=== PATIENT | female | born 2000 | race Caucasian/White ===

== ENCOUNTER 2021-12-30 18:41 | Emergency (ER) | payer OTHER, SELFPAY ==
--- NOTE | ~2021-12-30 | CT_ITS ---
EXAMINATION: CT SOFT TISSUE NECK WITH CONTRAST CLINICAL INFORMATION: Left cheek abscess COMPARISON: None TECHNIQUE: Following the intravenous administration of 60 mL of Omnipaque 350 intravenous contrast, helical imaging was performed in the axial plane with generation of coronal and sagittal reformatted images. This CT examination was performed using dose optimization techniques as appropriate, variously including the following: *Automated exposure control *Adjustment of mA and/or kV according to patient size (this includes techniques or standardized protocols for targeted exams where dose is matched to indication/reason for exam; i.e. extremities or head) *Use of iterative reconstruction technique DLP: 404 mGy-cm FINDINGS: There is hazy increased attenuation of the left buccal fat pad appearing somewhat coalescent centrally, without discrete abscess formation. There is overlying skin thickening. No contour abnormality or pathologic enhancement is seen within the oral cavity or pharyngeal mucosal space. The parapharyngeal fat is preserved. No extra mucosal soft tissue mass or fluid collection is seen. No retropharyngeal fluid collection is seen No cervical adenopathy is identified. The parotid glands are homogeneous in attenuation. The submandibular glands are normal. The laryngeal structures are normal. The carotid sheath vasculature opacifies normally. The thyroid gland is normal. The superior mediastinum is unremarkable. The lung apices are clear. The mastoid air cells and visualized portions of the paranasal sinuses are well-aerated. The temporomandibular joints are normal. No periapical disease is identified. No osseous abnormalities are seen. The imaged portions of the brain parenchyma are unremarkable. CT/CT soft tissue neck w con IMPRESSION: * Edematous changes within the left buccal fat pad suggestive of cellulitis and possible central phlegmonous change, non-odontogenic. No discrete abscess is evident. * No evidence of deep space infection.
[2021-12-30 19:23] VITALS: BP 130/82; PULSE 126; RESP 18; TEMP 37.3; O2SAT 99
[2021-12-30 19:46] VITALS: BP 130/82; PULSE 126; RESP 18; TEMP 37.3; O2SAT 99; BMI 19.3
--- NOTE | 2021-12-30 22:23 | ED.SKABFB ---
HPI - Skin/Abscess/Foreign Bdy General Chief complaint: Skin/Abscess/Foreign Body Stated complaint: infection on L cheek Time Seen by Provider: 12/30/21 22:23 Source: patient Mode of arrival: ambulatory Limitations: no limitations History of Present Illness HPI narrative: 21-year-old female with history of MRSA presenting to the emergency department with complaints of swelling to the left side of her face. Patient tells me about a week ago she had a pimple on her left cheek, she popped her pimple, and cleaned it with a dirty tell, since then she noticed that the swelling and pain have increased the left side of the face. She now reports left-sided ear pain, throat pain and pain in the left side of her neck. Reports slight chills however unsure of fever. Denies difficulty swallowing, chest pain, shortness of breath, nausea, vomiting, abdominal pain. Related Data Previous Rx's Medication Instructions Recorded cephalexin 500 mg tablet 500 mg PO Q6H 10 days #40 tabs 12/30/21 doxycycline hyclate 100 mg capsule 100 mg PO BID 10 days #20 caps 12/30/21 fluconazole 150 mg tablet 150 mg PO Q3D 2 doses #2 tabs 12/31/21 (Diflucan) Allergies Allergy/AdvReac Type Severity Reaction Status Date / Time amoxicillin [AMOXICILLIN] Allergy Unknown N/V Verified 12/30/21 19:45 Penicillins [PENICILLINS] Allergy Unknown UNKNOWN Verified 12/30/21 19:45 Review of Systems Review of Systems: Constitutional : No Weight loss, No Fever, No Chills, No Fatigue, No Malaise ENT/Mouth : No sore throat, No Rhinorrhea Eyes: No Eye Pain, No Swelling, No Redness Cardiovascular : No Chest Pain, No SOB, No Dyspnea on Exertion, No Orthopnea, No Edema, No Palpitations Respiratory : No Cough, No Sputum, No Wheezing Gastrointestinal : No Nausea, No Vomiting, No Diarrhea, No Constipation, No abdominal Pain, No Hematochezia, No Melena Genitourinary : No Dysuria, No Urinary Frequency, No Hematuria, Musculoskeletal : No joint pain, No Myalgias, No Joint Swelling Skin : No Skin Lesions, + rash, + abscess Neuro : No Weakness, No Numbness, No Dizziness, No Headache All other systems reviewed and are negative Yes all other systems are reviewed and are negative [facility] Past Medical History Attestation statement: The following information was validated with the patient. Source: old records reviewed and nursing notes reviewed Social History Social History Advance Directives: No Advance Directives Information Provided: No Physical Exam Vital Signs: Vital Signs: Last Vital Signs Temp 99.1 F 12/30/21 19:46 Pulse 126 H 12/30/21 19:46 Resp 18 12/30/21 19:46 BP 130/82 12/30/21 19:46 Pulse Ox 99 12/30/21 19:46 O2 Del Method 12/30/21 19:46 BMI result Body Mass Index 19.3 Vital signs stable however patient noted to be tachycardic and has a low-grade fever. Appearance: Alert.? Oriented X3.? No acute distress.? Head: Normocephalic, atraumatic, no step-offs or deformities Eyes: Pupils equal, round and reactive to light.? ENT: Pharynx normal.? Uvula midline. Patent airway. Neck: Normal inspection.? Neck supple.? No crepitus. CVS: Normal heart rate and rhythm.? Pulses normal.? Respiratory: No respiratory distress.? Breath sounds normal.? No stridor. Abdomen: Soft and nontender.? Skin: Skin warm and dry.? Normal skin color.? Normal skin turgor.? + positive warmth overlying the left cheek with overlying soft tissue swelling. No palpable fluctuance. Extremities: No lower extremity edema.? No calf ttp. 5/5 strength to bilateral upper and lower extremities Neuro: Oriented X 3.? No motor deficit.? No sensory deficit. CN 2-12 intact Course Reevaluation(s) Reevaluation #1: Patient's CBC within normal limits, no leukocytosis. Chemistry with no acute findings. COVID negative. CT of soft tissue neck with con with a did edematous changes within the left pupil fat pad suggestive of cellulitis and possible central phlegmonous change, non-odontogenic. No discreete abscess is evident. Patient willl be d/c on doxy and kelfex. Advised to follow-up PCP as soon as possible and shows worsening symptoms Time: : MDM - Skin/Abscess/Foreign Bdy MDM Narrative Medical decision making narrative: 2029 21-year-old female presenting with left-sided cheek swelling, pain status post popping a pimple, progressively worsening infection. Physical examination significant for significantly swollen left cheek with overlying erythema and warmth. No fluctuance. Likely abscess, or cellulitis. Will obtain a CT of neck, soft tissues to rule out abscess. Medical Records Attestation: I reviewed the patient's medical records. Lab Data Attestation: I reviewed the patient's lab results. Result diagrams: 12/30/21 23:21 12/30/21 23:21 Labs: Lab Results 12/30/21 12/30/21 12/30/21 Range/Units 23:20 23:21 23:21 WBC 10.1 (4.8-10.8) X10*3/uL RBC 4.09 L (4.20-5.50) X10*6/uL Hgb 12.5 (12.0-16.0) g/dl Hct 37.9 (37.0-47.0) % MCV 92.7 (80.0-98.0) fL MCH 30.6 (27.0-33.0) pg MCHC 33.0 (31.0-35.0) g/dl RDW 12.3 (11.0-16.0) % Plt Count 202 (160-400) X10*3/uL MPV 10.6 (9.4-12.3) fL Immature Gran % (Auto) 0.3 (0.0-0.4) % Neut % (Auto) 65.9 (45-73) % Lymph % (Auto) 25.6 (20-40) % Galax % (Auto) 6.6 (2-11) % Eos % (Auto) 1.2 (0-4) % Baso % (Auto) 0.4 (0-2) % Lymph # (Auto) 2.6 (1.2-4.9) X10*3/uL Galax # (Auto) 0.7 (0.1-1.2) X10*3/uL Eos # (Auto) 0.1 (0.0-0.4) X10*3/uL Baso # (Auto) 0.0 (0.0-0.2) X10*3/uL Abs Immat Gran (auto) 0.03 (0.00-0.03) X10*3/uL Absolute Neuts (auto) 6.7 (2.0-8.3) x10*3/uL Absolute Nucleated RBC 0.000 (0.0-0.012) X10*3/uL Nucleated RBC % (auto) 0.0 (0.0-0.2) /100WBC Sodium 142 (135-145) mmol/L Potassium 3.7 (3.3-5.1) mmol/L Chloride 105 (96-108) mmol/L Carbon Dioxide 26 (22-29) mmol/L Anion Gap 15 (12-20) BUN 11 (9-16) mg/dL Creatinine 0.61 (0.5-1.4) mg/dL Estim Creat Clear Calc 108.0 Estimated GFR > 60 Random Glucose 99 (60-115) mg/dL Lactic Acid (0.5-2.0) mmol/L Calcium 9.1 (8.4-10.2) mg/dL Total Bilirubin 0.3 (0.0-1.0) mg/dL AST 36 H (5-31) U/L ALT 28 (0-31) U/L Alkaline Phosphatase 71 (39-117) U/L Total Protein 7.1 (6.5-8.0) g/dL Albumin 4.4 (3.5-5.0) g/dL COVID-19 (YELITZA) Negative (Negative) COVID-19 Clin Com See Note 12/30/21 Range/Units 23:21 WBC (4.8-10.8) X10*3/uL RBC (4.20-5.50) X10*6/uL Hgb (12.0-16.0) g/dl Hct (37.0-47.0) % MCV (80.0-98.0) fL MCH (27.0-33.0) pg MCHC (31.0-35.0) g/dl RDW (11.0-16.0) % Plt Count (160-400) X10*3/uL MPV (9.4-12.3) fL Immature Gran % (Auto) (0.0-0.4) % Neut % (Auto) (45-73) % Lymph % (Auto) (20-40) % Galax % (Auto) (2-11) % Eos % (Auto) (0-4) % Baso % (Auto) (0-2) % Lymph # (Auto) (1.2-4.9) X10*3/uL Galax # (Auto) (0.1-1.2) X10*3/uL Eos # (Auto) (0.0-0.4) X10*3/uL Baso # (Auto) (0.0-0.2) X10*3/uL Abs Immat Gran (auto) (0.00-0.03) X10*3/uL Absolute Neuts (auto) (2.0-8.3) x10*3/uL Absolute Nucleated RBC (0.0-0.012) X10*3/uL Nucleated RBC % (auto) (0.0-0.2) /100WBC Sodium (135-145) mmol/L Potassium (3.3-5.1) mmol/L Chloride (96-108) mmol/L Carbon Dioxide (22-29) mmol/L Anion Gap (12-20) BUN (9-16) mg/dL Creatinine (0.5-1.4) mg/dL Estim Creat Clear Calc Estimated GFR Random Glucose (60-115) mg/dL Lactic Acid 1.6 (0.5-2.0) mmol/L Calcium (8.4-10.2) mg/dL Total Bilirubin (0.0-1.0) mg/dL AST (5-31) U/L ALT (0-31) U/L Alkaline Phosphatase (39-117) U/L Total Protein (6.5-8.0) g/dL Albumin (3.5-5.0) g/dL COVID-19 (YELITZA) (Negative) COVID-19 Clin Com Critical Care Time Critical Care Time Critical Care Time: No Discharge Plan Discharge Clinical Impression: Cellulitis, Swelling, cheek Patient Disposition: Home, Self-Care Instructions: Cellulitis (ED), Abscess (ED), Warm Compress or Soak (ED) Additional Instructions: Take your medications as prescribed. If you were prescribed antibiotics today, it is important that you take your medication to their entirety, do not skip any doses, do not finish them early. Follow-up with your primary care provider this week. Return to the emergency department with new or worsening symptoms. Such as fevers, chills, chest pain, shortness of breath, nausea, vomiting, dizziness, headache, vision changes, lethargy In case of emergency call 911 CT/CT soft tissue neck w con IMPRESSION: *? Edematous changes within the left buccal fat pad suggestive of cellulitis and possible central phlegmonous change, non-odontogenic. No discrete abscess is evident. *? No evidence of deep space infection. ? Prescriptions: New doxycycline hyclate 100 mg capsule 100 mg PO BID 10 Days Qty: 20 0RF cephalexin 500 mg tablet 500 mg PO Q6H 10 Days Qty: 40 0RF fluconazole [Diflucan] 150 mg tablet 150 mg PO Q3D Qty: 2 0RF Referrals: Rex Alejandre MD [Primary Care Provider] - 2 days
[2021-12-30 23:27] LABS: MANUAL DIFF FLAG NO
--- NOTE | 2021-12-30 23:27 | PC.NURSE ---
Pt refusing IV and IV ABX. Pt states I just thought I would get some pills, I don't want that. ARACELI notified that pt is refusing causing delay to administer ABX. ARACELI to bedside to discuss plan of care with pt.
[2021-12-30 23:29] LABS: Basophils Percent Auto 0.4 % (0-2); Eosinophils Absolute Auto 0.1 X10*3/uL (0.0-0.4); Eosinophils Percent Auto 1.2 % (0-4); Hematocrit 37.9 % (37.0-47.0); Hemoglobin 12.5 g/dl (12.0-16.0); Imm Gran Abs Auto 0.03 X10*3/uL (0.00-0.03); Imm Gran Pct Auto 0.3 % (0.0-0.4); Lymphocytes Absolute Auto 2.6 X10*3/uL (1.2-4.9); Lymphocytes Percent Auto 25.6 % (20-40); Mean Corpuscular Hemoglobin 30.6 pg (27.0-33.0); Mean Corpuscular Volume 92.7 fL (80.0-98.0); Mean Platelet Volume 10.6 fL (9.4-12.3); Monocytes Absolute Auto 0.7 X10*3/uL (0.1-1.2); Monocytes Percent Auto 6.6 % (2-11); Neutrophils Absolute Auto 6.7 x10*3/uL (2.0-8.3); Neutrophils Percent Auto 65.9 % (45-73); Platelet Count 202 X10*3/uL (160-400); Red Blood Count 4.09 X10*6/uL (4.20-5.50); Red Cell Distribution Width 12.3 % (11.0-16.0); White Blood Count 10.1 X10*3/uL (4.8-10.8)
[2021-12-30 23:42] LABS: Lactic Acid 1.6 mmol/L (0.5-2.0)
[2021-12-30] MEDS: Clindamycin Phosphate/D5W 600 MG/50 ML PIGGYBACK 100 MG IV (23:42)
--- NOTE | 2021-12-30 23:43 | PC.NURSE ---
IV established, ABX infusing per MAR. Plan for CT.
[2021-12-30 23:46] LABS: COVID-19 Test Negative (Negative)
[2021-12-30 23:47] LABS: Alanine Aminotransferase 28 U/L (0-31); Albumin Level 4.4 g/dL (3.5-5.0); Alkaline Phosphatase 71 U/L (39-117); Anion Gap 15 (12-20); Aspartate Amino Transferase 36 U/L (5-31); Bilirubin Total 0.3 mg/dL (0.0-1.0); Blood Urea Nitrogen 11 mg/dL (9-16); Calcium 9.1 mg/dL (8.4-10.2); Carbon Dioxide 26 mmol/L (22-29); Chloride 105 mmol/L (96-108); Estimated Glomerular Filt Rate > 60; Glucose Random 99 mg/dL (60-115); Potassium 3.7 mmol/L (3.3-5.1); Sodium 142 mmol/L (135-145); Total Protein 7.1 g/dL (6.5-8.0)
[2021-12-31] MEDS: iohexoL 350 MG/ML 100 ML INFUS..BTL 60 ML IV (00:59)
== END 2021-12-31 01:43 | disposition home or self-care (01) ==
PROVIDERS: Physician Assistant; Emergency Provider Internal Medicine; PCP Internal Medicine
DX: L03.211 Cellulitis of face (principal); R22.0 Localized swelling, mass and lump, head; Z20.822 Contact with and (suspected) exposure to COVID-19
CPT/HCPCS: 70491; 80053; 83605; 85025; 87040; 87635; 96365; 99283; 99284; Q9967

== ENCOUNTER 2022-04-11 06:23 | Emergency (ER) | payer OTHER, SELFPAY ==
[2022-04-11 06:35] VITALS: BP 117/75; PULSE 105; RESP 22; TEMP 36.8; O2SAT 94; BMI 20.5
--- OUTSIDE RECORDS SUMMARY | 2022-04-11 07:43 | XMS_ITS ---
:2001 External Reference #:[id number] Author Care Team Providers Name Role Phone REX ALEJANDRE MD Primary Care Provider [phone] LISHA HANDLEY MD Referring Provider [phone] RUTHIE HELTON MD Referring Provider [phone] AMANDA POOL MD Psychiatrist [phone] KUMAR MOODY MD Referring Provider [phone] HALINA BAEZA MD Referring Provider [phone] [facility] (ADULT INTAKE) Clinical Psycholo gist [phone] Allergies Code Code System Name Reaction Severity Status Onset No Known Allergies ? ? Deactivated 05/17/2011 Penicillins Rash ? Active 11/28/19 14 Adhesive Tape Rash ? Active ? Medications Name Status Start Date Stop Date ? ? a thru z select advanced tabs Completed ? Aerochamber Max - Mask Small Completed 03/31/2010 DIRECTED albuterol (refill) 90 mcg/actuation aerosol inhaler Completed 03/31/2010 04/29/2012 Q 4-6 HRS PRN COUGH/WHEEZE amoxicillin 400 mg chewable tablet Completed 09/09/2008 09/14/2008 TWO TIMES DAILY amoxicillin 400 mg/5 mL oral suspension Completed 09/03/19 09 09/12/2008 EVERY 8 HOURS azithromycin 200 mg/5 mL oral suspension Completed 010 04/05/2010 DIRECTED azithromycin 250 mg tablet Completed ? 03/06 azithromycin 500 mg tabs Unknown ? Not suhail ilable benzonatate 100 mg caps Unknown ? Not avai lable cefuroxime axetil 500 mg tablet Completed ? 03/29/2021 TK 1 T PO BID FOR 7 DAYS cetirizine 10 mg tablet Completed 09/21/2011 11/27/19 13 DAILY DAILY VITAMIN FORMULA-MINERALS tablet Completed ? 03/11/2016 Take 1 tablet every day by oral route. dextroamphetamine-amphetamine ER 15 mg 24hr Unknown ? Not available capsule,extend release fluconazole 150 mg tablet Completed ? 2020 TAKE 1 TABLET BY MOUTH ON THE FIRST DAY , THEN 1 TABLET EVERY 3RD DAY FOR 9 DAYS fluticasone propionate 50 mcg/actuation nasal spray,suspension A ctive ? Not available Inhale 2 sprays every day by intranasal route each nostril for 30 days. gabapentin 100 mg capsule Active ? Not av ailable TAKE 1 CAPSULE BY MOUTH TWICE A DAY lidocaine viscous 2 % soln Unknown ? Not a vailable loperamide hcl 2 mg caps Unknown ? Not suhail ilable loratadine 10 mg tablet Completed ? 12/09/19 16 melatonin 1.5 mg tablet Completed ? 10/22/19 10 HS methylphenidate ER 20 mg tablet,extended release Completed ? 05/17/2011 DAILY miconazole nitrate 100 mg vaginal suppository Completed ? 03/29/2021 INSERT 1 UNWRAPPED SUPPOSITORY VAGINALLY ONCE A DAY AT BEDTIME FOR 14 DAYS montelukast 5 mg chewable tablet Completed ? 12/19/2018 mupirocin calcium 2 % topical cream Completed ? 09/21/2016 Nasarel 29 mcg (0.025 %) nasal spray Completed 08/26/2008 10/21/2009 2 TIMES A DAY Nasonex 50 mcg/actuation [place] Unknown 08/26/2008 N ot available DAILY bhtnexwk-ckuaotgre-sahettiae 3.5 mg/mL-10,000 unit/mL- 1 % ear solution Completed 05/17/2011 05/24/2011 FOUR TIMES DAILY Nexplanon 68 mg subdermal implant Completed ? 02/26/2020 Inject 1 implant by subcutaneous route. nystatin-triamcinolone 100,000 unit/g-0.1 % Unknown ? Not available topical cream omeprazole Completed 09/21/2011 10/21/2011 DAILY omeprazole 40 mg capsule,delayed release Completed ? 09/21/2016 ondansetron odt 4 mg tbdp Unknown ? Not av ailable polymyxin B sulfate 10,000 unit-trimethoprim 1 mg/mL eye priscila ps Completed 05/18/2010 05/25/2010 FOUR TIMES DAILY prednisolone 15 mg/5 mL oral solution Completed 01/11/2009 01/16/2009 DIRECTED prednisone 20 mg tablet Completed 01/12/2009 01/18/20 09 DAILY quetiapine fumarate 50 mg tabs Unknown ? N ot available risperidone 0.5 mg tablet Unknown ? Not av ailable risperidone 1 mg tabs Unknown ? Not availa ble sertraline 100 mg tablet Completed ? 018 sertraline 50 mg tablet Completed ? 09/22/19 17 sertraline hcl 50 mg tabs Unknown ? Not av ailable sulfamethoxazole 800 mg-trimethoprim 160 mg Completed ? 02/26/2020 tablet sumatriptan 25 mg tablet Completed ? 016 terconazole 0.4 % vaginal cream Completed ? 03/29/2021 INSERT 1 APPLICATION VAGINALLY AT BEDTIME X 7 DAYS ziprasidone hcl 20 mg caps Unknown ? Not a vailable Zithromax TRI-ISABELL 500 mg tablet Unknown ? Not available Take 1 tablet every day by oral route as directed for 3 days. Problems Name Status Onset Date Source ? Varicella Vaccination Unknown 10/21/2009 ? Varicella Vaccination Unknown 10/21/2009 ? Functional Visual Loss Unknown 02/21/2012 ? Functional Visual Loss Unknown 02/21/2012 ? Conjunctivitis Unknown 02/21/2012 ? Conjunctivitis Unknown 02/21/2012 ? Infective Otitis Externa Unknown 02/21/2012 ? Infective Otitis Externa Unknown 02/21/2012 ? Acute Sinusitis Unknown 02/21/2012 ? Acute Sinusitis Unknown 02/21/2012 ? Acute Pharyngitis Unknown 02/21/2012 ? Acute Pharyngitis Unknown 02/21/2012 ? Gastroesophageal Reflux Disease Unknown 02/21/2012 ? Gastroesophageal Reflux Disease Unknown 02/21/2012 ? Eruption Unknown 02/21/2012 ? Eruption Unknown 02/21/2012 ? Headache Unknown 02/21/2012 ? Headache Unknown 02/21/2012 ? Epistaxis Unknown 02/21/2012 ? Epistaxis Unknown 02/21/2012 ? Cough Unknown 02/21/2012 ? Cough Unknown 02/21/2012 ? Vomiting Unknown 02/21/2012 ? Vomiting Unknown 02/21/2012 ? Diarrhea Unknown 02/21/2012 ? Diarrhea Unknown 02/21/2012 ? Sprain of Knee and Leg Unknown 02/21/2012 ? Sprain of Knee and Leg Unknown 02/21/2012 ? Well Child Unknown 02/21/2012 ? Influenza Vaccine Needed Unknown 06/20/2012 ? Influenza Vaccine Needed Unknown 06/20/2012 ? Acute Upper Respiratory Infection Unknown 10/05/2012 ? Acute Upper Respiratory Infection Unknown 10/05/2012 ? Noninfectious Gastroenteritis Unknown 10/05/2012 ? Noninfectious Gastroenteritis Unknown 10/05/2012 ? Insect Bite to Leg - Nonvenomous Unknown 10/25/2012 ? Insect Bite to Leg - Nonvenomous Unknown 10/25/2012 ? Wrist Joint Pain Unknown 11/11/2012 ? Wrist Joint Pain Unknown 11/11/2012 ? Intestinal Infectious Disease Unknown 11/14/2012 ? Intestinal Infectious Disease Unknown 11/14/2012 ? Administration of Viral Vaccine Unknown 11/14/2012 ? Acute Upper Respiratory Infection Unknown 02/26/2013 ? Administration of Diphtheria, Pertussis, and Tetanus Unknown 02/26/2013 ? Vaccine Administration of Diphtheria, Pertussis, and Tetanus Unknown 02/26/2013 ? Vaccine Well Child Unknown 02/26/2013 ? Administration of Viral Vaccine Unknown 05/19/2013 ? Administration of Viral Vaccine Unknown 11/06/2013 ? Allergic Rhinitis Unknown 11/27/2013 ? Failure to Thrive Unknown 11/27/2013 ? Well Child Unknown 11/27/2013 ? Effusion of Joint Active 11/28/2013 ? Eating Disorder Active 07/12/2016 ? Generalized Anxiety Disorder Active 12/19/2018 ? Somatization Disorder Active 12/19/2018 ? 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 Adolescent Idiopathic Scoliosis Active 02/05/2019 ? Dry Eyes Active 05/24/2020 ? Attention Deficit Hyperactivity Disorder, Combined Active 03/29/2021 ? Type Psychiatric Symptom Active ? History Problematic Behavior in Children Active ? Encounter Acute Sinusitis Unknown ? Encounter Acute Pharyngitis Unknown ? Encounter Headache Unknown ? Encounter Abdominal Pain Unknown ? Encounter Procedures Date Name Performed by ? 09/11/2016 Egd Diagnostic [place] Information no t available 12/03/2014 Audiometry In-Office Order Internal Use Only DO Not Attach Compendium DO Not Attach Compendium Do Not Delete/merge [id number] 12/09/2015 Audiogram In-Office Order Internal Use Only DO Not Attach Compendium DO Not Attach Compendium Do Not Delete/merge [id number] 04/12/2016 XR, Upper Gastrointestinal Series [facility] [address] [place] [address] (Work Place) 09/21/2016 XR, Entire Spine [facility] [address] [place] [address] (Work Place) 12/13/2016 Audiogram In-Office Order Internal Use Only DO Not Attach Compendium DO Not Attach Compendium Do Not Delete/merge [id number] 12/17/2017 Audiogram In-Office Order Internal Use Only DO Not Attach Compendium DO Not Attach Compendium Do Not Delete/merge [id number] Results Lab Results Date Name Specimen Result Interpretation Description Value Range Status Address ? 12/17/2017 Urinalysis, Urine ? Appear/color ? ? F inal [facility] Complete clean Referenc e catch Laboratori es: [address], [place] ? ? Urine ? Sp. [place] 1.030 (1.0 Final [facility] butt clean 02-1 Reference catch .030 Laboratori es: ) [address], [place] ? ? Urine ? Urine pH 5.0 (4.0 Final [facility] clean -8.0 Reference catch ) Laboratori es: [address], [place] ? ? Urine ? Urine Albumin negativ (neg Final [facility] clean e ) Reference catch Laboratori es: [address], [place] ? ? Urine ? Urine Glucose negativ (neg Final [facility] clean e ) Reference catch Laboratori es: [address], [place] ? ? Urine ? Urine Ketones negativ (neg Final [facility] clean e ) Reference catch Laboratori es: [address], [place] ? ? Urine ? Urine negativ (neg Final [facility] clean Bilirubin e ) Referen ce catch Laboratori es: [address], [place] ? ? Urine ABNORMAL Urine 2+ (neg Final [facility] clean Hemoglobn ) Referen ce catch Laboratori es: [address], [place] ? ? Urine ? Urine Nitrite negativ (neg Final [facility] clean e ) Reference catch Laboratori es: [address], [place] ? ? Urine ? Urine negativ (neg Final [facility] clean Leukocyte e ) Referen ce catch Laboratori es: [address], [place] ? ? Urine ? Urobilinogen normal (nor Final [facility] clean mg/dL m) Reference catch mg/d Laboratori es: L [address], [place] ? ? Urine ? Urine WBC's hpf (0-5 Final [facility] butt clean ) Reference catch /hpf Laboratori es: [address], [place] ? ? Urine ? Urine RBC's 2 /hpf (<3) Final [facility] butt clean /hpf Reference catch Laboratori es: [address], [place] ? ? Urine ? Mucus heavy ? Final [facility] clean /lpf Reference catch Laboratori es: [address], [place] ? ? Urine ? Squamous 4 /hpf ? Final [facility] clean Epith Reference catch Laboratori es: [address], [place] 12/17/2017 Culture, Urine Urine ? Specimen clean ? Fi nal [facility] clean Description catch Refer ence catch (urine) Laborator ies: [address], [place] ? ? Urine ? Special none ? Final [facility] clean Requests Referenc e catch Laboratori es: [address], [place] ? ? Urine ? Culture no ? Final [facility] clean growth Reference catch Laboratori es: [address], [place] ? ? Urine ? Report Status final ? Final [facility] clean Reference catch 018 Laboratori es: [address], [place] 12/17/2017 Audiogram ? Left 125 normal ? ? In-Office Order: Internal U se Only DO No t Attach Compendium DO Not Attach Compendium , Do Not Delete/arjun ge ? ? ? Right 125 normal ? ? In-Off ice Order: Internal U se Only DO No t Attach Compendium DO Not Attach Compendium , Do Not Delete/arjun ge ? ? ? Left 250 normal ? ? In-Offi ce Order: Internal U se Only DO No t Attach Compendium DO Not Attach Compendium , Do Not Delete/arjun ge ? ? ? Right 250 normal ? ? In-Off ice Order: Internal U se Only DO No t Attach Compendium DO Not Attach Compendium , Do Not Delete/arjun ge ? ? ? Left 500 normal ? ? In-Offi ce Order: Internal U se Only DO No t Attach Compendium DO Not Attach Compendium , Do Not Delete/arjun ge ? ? ? Right 500 normal ? ? In-Off ice Order: Internal U se Only DO No t Attach Compendium DO Not Attach Compendium , Do Not Delete/arjun ge ? ? ? Left 1000 normal ? ? In-Off ice Order: Internal U se Only DO No t Attach Compendium DO Not Attach Compendium , Do Not Delete/arjun ge ? ? ? Right 1000 normal ? ? In-Of fice Order: Internal U se Only DO No t Attach Compendium DO Not Attach Compendium , Do Not Delete/arjun ge ? ? ? Left 2000 normal ? ? In-Off ice Order: Internal U se Only DO No t Attach Compendium DO Not Attach Compendium , Do Not Delete/arjun ge ? ? ? Right 2000 normal ? ? In-Of fice Order: Internal U se Only DO No t Attach Compendium DO Not Attach Compendium , Do Not Delete/arjun ge ? ? ? Left 4000 normal ? ? In-Off ice Order: Internal U se Only DO No t Attach Compendium DO Not Attach Compendium , Do Not Delete/arjun ge ? ? ? Right 4000 normal ? ? In-Of fice Order: Internal U se Only DO No t Attach Compendium DO Not Attach Compendium , Do Not Delete/arjun ge ? ? ? Left 6000 normal ? ? In-Off ice Order: Internal U se Only DO No t Attach Compendium DO Not Attach Compendium , Do Not Delete/arjun ge ? ? ? Right 6000 normal ? ? In-Of fice Order: Internal U se Only DO No t Attach Compendium DO Not Attach Compendium , Do Not Delete/arjun ge ? ? ? Left 8000 normal ? ? In-Off ice Order: Internal U se Only DO No t Attach Compendium DO Not Attach Compendium , Do Not Delete/arjun ge ? ? ? Right 8000 normal ? ? In-Of fice Order: Internal U se Only DO No t Attach Compendium DO Not Attach Compendium , Do Not Delete/arjun ge 12/17/2017 Urinalysis, ? Leukocytes Negativ ? ? In-Office Dipstick e Order: Internal U se Only DO No t Attach Compendium DO Not Attach Compendium , Do Not Delete/arjun ge ? ? ? Nitrite negativ ? ? In-Offi ce e Order: Internal U se Only DO No t Attach Compendium DO Not Attach Compendium , Do Not Delete/arjun ge ? ? ? Urobilinogen .2 ? ? In- Office Order: Internal U se Only DO No t Attach Compendium DO Not Attach Compendium , Do Not Delete/arjun ge ? ? ? Protein Negativ ? ? In-Offi ce e Order: Internal U se Only DO No t Attach Compendium DO Not Attach Compendium , Do Not Delete/arjun ge ? ? ? Ph 6.0 ? ? In-Office Order: Internal U se Only DO No t Attach Compendium DO Not Attach Compendium , Do Not Delete/arjun ge ? ? ? Blood Non-Hem ? ? In-Office olyzed: Order: Trace Internal U se Only DO No t Attach Compendium DO Not Attach Compendium , Do Not Delete/arjun ge ? ? ? Specific 1.030 ? ? In-Offi ce [place] Order: Internal U se Only DO No t Attach Compendium DO Not Attach Compendium , Do Not Delete/arjun ge ? ? ? Ketone Negativ ? ? In-Offic e e Order: Internal U se Only DO No t Attach Compendium DO Not Attach Compendium , Do Not Delete/arjun ge ? ? ? Bilirubin Negativ ? ? In-Of fice e Order: Internal U se Only DO No t Attach Compendium DO Not Attach Compendium , Do Not Delete/arjun ge ? ? ? Glucose Negativ ? ? In-Offi ce e Order: Internal U se Only DO No t Attach Compendium DO Not Attach Compendium , Do Not Delete/arjun ge ? ? ? Appearance Clear ? ? In-Of fice Order: Internal U se Only DO No t Attach Compendium DO Not Attach Compendium , Do Not Delete/arjun ge ? ? ? Color Dark ? ? In-Office Yellow Order: Internal U se Only DO No t Attach Compendium DO Not Attach Compendium , Do Not Delete/arjun ge 03/06/2016 Urinalysis, ? Appear/color ? ? F inal [facility] Complete Referenc e Laboratori es: [address], [place] ? ? High Sp. [place] 1.031 (1.0 Final [facility] 07-05 Reference .030 Laboratori es: ) [address], [place] ? ? ? Urine pH 6.0 (4.0 Final [facility] e -8.0 Reference ) Laboratori es: [address], [place] ? ? ABNORMAL Urine Albumin 2+ (neg Final [facility] ) Reference Laboratori es: [address], [place] ? ? ? Urine Glucose negativ (neg Final [facility] e ) Reference Laboratori es: [address], [place] ? ? ABNORMAL Urine Ketones 2+ (neg Final [facility] ) Reference Laboratori es: [address], [place] ? ? ? Urine negativ (neg Final [facility] Bilirubin e ) Referen ce Laboratori es: [address], [place] ? ? ABNORMAL Urine 2+ (neg Final [facility] Hemoglobn ) Referen ce Laboratori es: [address], [place] ? ? ? Urine Nitrite negativ (neg Final [facility] e ) Reference Laboratori es: [address], [place] ? ? ? Urine negativ (neg Final [facility] Leukocyte e ) Referen ce Laboratori es: [address], [place] ? ? ? Urobilinogen normal (nor Final [facility] mg/dL m) Reference mg/d Laboratori es: L [address], [place] ? ? ? Urine WBC's none (0-5 Final [facility] seen ) Reference /hpf /hpf Laboratori es: [address], [place] ? ? High Urine RBC's 3 /hpf (<3) Final [facility] /hpf Reference Laboratori es: [address], [place] ? ? ABNORMAL Bacteria slight (neg Final [facility] hpf ) Reference hpf Laboratori es: [address], [place] ? ? ? Mucus heavy ? Final [facility] /lpf Reference Laboratori es: [address], [place] ? ? High Hyaline Cast 12 lpf (0-2 Final [facility] ) Reference lpf Laboratori es: [address], [place] 03/06/2016 BMP, Serum or ? Glucose 61 (60- Lula l [facility] Plasma mg/dL 99) Reference mg/d Laboratori es: L [address], [place] ? ? ? Bun 15 (5-1 Final [facility] mg/dL 8) Reference mg/d Laboratori es: L [address], [place] ? ? ? Creatinine 0.6 (0.5 Final [facility] mg/dL -0.8 Reference ) Laboratori es: mg/d [address], [place] ? ? ? Sodium 141 (133 Final [facility] mmol/L -145 Reference ) Laboratori es: mmol [address], [place] ? ? ? Potassium 4.0 (3.6 Final [facility] mmol/L -5.2 Reference ) Laboratori es: mmol [address], [place] ? ? ? Chloride 100 (98- Final [facility] mmol/L 107) Reference mmol Laboratori es: /L [address], [place] ? ? Low Bicarbonate 18 (22- Final [facility] mmol/L 29) Reference mmol Laboratori es: /L [address], [place] ? ? High Anion Gap 23 (4-1 Final [facility] 7) Reference Laboratori es: [address], [place] ? ? ? Calcium 9.6 (8.6 Final [facility] mg/dL -10. Reference 5) Laboratori es: mg/d [address], [place] ? ? ? Est GFR Non not ? Final [facility] butt reporte Referenc e [place] d if Laborato elsie: <18 yrs [address]/ [address], 1.73 [facility] ? ? ? Est GFR not ? Final [facility] reporte Referenc e [place] d if Laborato elsie: <18 yrs [address]/min/ Ave, 1.73 M2 [place] 03/06/2016 Hepatic ? Bilirubin,tot 1.0 (0-1 Lula l [facility] Function al mg/dL .2) Referenc e Panel, Serum mg/d Labo ratories: L [address], [place] ? ? ? Bilirubin, 0.3 (0-0 Final [facility] Direct mg/dL .3) Reference mg/d Laboratori es: L [address], [place] ? ? ? Indirect 0.7 (0.0 Final [facility] Bilirubin mg/dL -0.7 Referen ce ) Laboratori es: mg/d [address], [place] ? ? High Albumin 4.9 (3.2 Final [facility] gm/dL -4.5 Reference ) Laboratori es: gm/d [address], [place] ? ? ? Ast 22 U/L (0-3 Final [facility] 2) Reference U/L Laboratori es: [address], [place] ? ? ? Alt 14 U/L (0-3 Final [facility] 1) Reference U/L Laboratori es: [address], [place] ? ? ? Alk Phos 77 U/L (0-1 Final [facility] e 87) Reference U/L Laboratori es: [address], [place] ? ? ? Total Protein 7.4 (6.2 Final [facility] gm/dL -8.2 Reference ) Laboratori es: gm/d [address], [place] 03/06/2016 Lipase, Serum Low Lipase 12 U/L (13- Final [facility] or Plasma 60) Referen ce U/L Laboratori es: [address], [place] 03/06/2016 H Pylori ? H. Pylori IgG ? ? Fin al [facility] Igm+igg+iga Refer ence Ab, Serum Laborat ories: [address], [place] 02/23/2016 CBC W/ Auto ? Wbc 4.2 (4.0 Final [facility] Diff K/mm3 -11. Reference 0) Laboratori es: K/mm [address], [place] ? ? ? Rbc 4.53 (4.2 Final [facility] M/mm3 0-5. Reference 40) Laboratori es: M/mm [address], [place] ? ? ? Hgb 13.1 (12. Final [facility] gm/dL 0-16 Reference .0) Laboratori es: gm/d [address], [place] ? ? ? Hct 39.7 % (37. Final [facility] 0-47 Reference .0) Laboratori es: % [address], [place] ? ? ? Mcv 87.6 fL (80. Final [facility] 0-10 Reference 0.0) Laboratori es: fL [address], [place] ? ? ? Mch 28.9 pg (27. Final [facility] 0-34 Reference .0) Laboratori es: pg [address], [place] ? ? ? Mchc 33.0 (33. Final [facility] g/dL 0-37 Reference .0) Laboratori es: g/dL [address], [place] ? ? ? Plt 176 (150 Final [facility] K/mm3 -460 Reference ) Laboratori es: K/mm [address], [place] ? ? ? RDW-SD 41.2 fL (<47 Final [facility] .0) Reference fL Laboratori es: [address], [place] ? ? ? Mpv 12.0 fL (9.4 Final [facility] -12. Reference 4) Laboratori es: fL [address], [place] ? ? ? Automated 0.0 ? [facility] Reference WBC's Laboratori es: [address], [place] ? ? ? Abs. NRBC 0.0 ? Final [facility] K/mm3 Reference Laboratori es: [address], [place] 03/18/2015 Streptococcus ? Specimen throat ? Fin al [facility] a, Description swab Ref erence Culture, Laborato elsie: Throat [address], [place] ? ? ? Special none ? Final [facility] Requests Referenc e Laboratori es: [address], [place] ? ? ? Culture no ? Final [facility] group A Reference beta Laboratori es: hemolyt [address], [place] cocci isolate d ? ? ? Report Status final ? Final [facility] Reference 015 Laboratori es: [address], [place] 01/23/2014 Urinalysis, ? Appear/color ? ? F inal [facility] Complete Referenc e Laboratori es: [address], [place] ? ? ? Sp. [place] 1.030 (1.0 Final [facility] 02-1 Reference .030 Laboratori es: ) [address], [place] ? ? ? Urine pH 5.0 (4.0 Final [facility] e -8.0 Reference ) Laboratori es: [address], [place] ? ? ? Urine Albumin negativ (neg Final [facility] e ) Reference Laboratori es: [address], [place] ? ? ? Urine Glucose negativ (neg Final [facility] e ) Reference Laboratori es: [address], [place] ? ? ABNORMAL Urine Ketones trace (neg Final [facility] ) Reference Laboratori es: [address], [place] ? ? ? Urine negativ (neg Final [facility] Bilirubin e ) Referen ce Laboratori es: [address], [place] ? ? ? Urine negativ (neg Final [facility] Hemoglobn e ) Referen ce Laboratori es: [address], [place] ? ? ? Urine Nitrite negativ (neg Final [facility] e ) Reference Laboratori es: [address], [place] ? ? ? Urine negativ (neg Final [facility] Leukocyte e ) Referen ce Laboratori es: [address], [place] ? ? ? Urobilinogen normal (nor Final [facility] mg/dL m) Reference mg/d Laboratori es: L [address], [place] ? ? ? Urine WBC's 1 /hpf (0-5 Final [facility] ) Reference /hpf Laboratori es: [address], [place] ? ? ? Urine RBC's 2 /hpf (<3) Final [facility] /hpf Reference Laboratori es: [address], [place] ? ? ? Mucus heavy ? Final [facility] /lpf Reference Laboratori es: [address], [place] ? ? ? Squamous 5 /hpf ? Final [facility] Epith Reference Laboratori es: [address], [place] 01/23/2014 GWEN ? Anti-nuclear ? ? Final [facility] (Antinuclear Antibody Re ference Antibodies) Screen Labor atories: Screen, Serum [address], [place] 01/23/2014 ESR ? Sedimentation 4 mm/HR (0-2 Lula l [facility] (Erythrocyte Rate 0) Refe rence Sedimentation mm/H Lab oratories: Rate), Blood R [address], [place] 01/23/2014 Rf (Rheumatoid ? Rheumatoid 11.0 (<14 Final [facility] Factor), Serum Factor IU/mL ) Re ference IU/m Laboratori es: L [address], [place] 01/23/2014 CMP, Serum or ? Glucose 74 (60- Lula l [facility] Plasma mg/dL 99) Reference mg/d Laboratori es: L [address], [place] ? ? ? Bun 14 (5-1 Final [facility] mg/dL 8) Reference mg/d Laboratori es: L [address], [place] ? ? ? Creatinine 0.6 (0.4 Final [facility] mg/dL -0.7 Reference ) Laboratori es: mg/d [address], [place] ? ? ? Sodium 141 (133 Final [facility] mmol/L -145 Reference ) Laboratori es: mmol [address], [place] ? ? ? Potassium 4.0 (3.6 Final [facility] mmol/L -5.2 Reference ) Laboratori es: mmol [address], [place] ? ? ? Chloride 104 (98- Final [facility] mmol/L 107) Reference mmol Laboratori es: /L [address], [place] ? ? ? Bicarbonate 26 (22- Final [facility] mmol/L 29) Reference mmol Laboratori es: /L [address], [place] ? ? ? Anion Gap 11 (4-1 Final [facility] 7) Reference Laboratori es: [address], [place] d ? ? ? Albumin 4.9 (3.8 Final [facility] gm/dL -5.4 Reference ) Laboratori es: gm/d [address], [place] ? ? ? Calcium 9.9 (8.6 Final [facility] mg/dL -10. Reference 5) Laboratori es: mg/d [address], [place] ? ? ? Bilirubin,tot 0.8 (0-1 Final [facility] al mg/dL .2) Reference mg/d Laboratori es: L [address], [place] ? ? ? Total Protein 7.0 (6.2 Final [facility] gm/dL -8.2 Reference ) Laboratori es: gm/d [address], [place] ? ? ? Ag Ratio 2.3 ? Final [facility] Reference Laboratori es: [address], [place] ? ? ? Ast 17 U/L (0-3 Final [facility] 2) Reference U/L Laboratori es: [address], [place] ? ? ? Alk Phos 157 U/L (0-3 Final [facility] 00) Reference U/L Laboratori es: [address], [place] ? ? ? Alt 11 U/L (0-3 Final [facility] 1) Reference U/L Laboratori es: [address], [place] 01/23/2014 TSH, Serum or ? Tsh 0.99 (0.4 Final [facility] Plasma mIU/mL -4.0 Reference ) Laboratori es: mIU/ [address], [place] 01/23/2014 CBC W/ Auto ? Wbc 4.3 (4.0 Final [facility] Diff K/mm3 -11. Reference 0) Laboratori es: K/mm [address], [place] ? ? ? Rbc 4.67 (4.2 Final [facility] M/mm3 0-5. Reference 40) Laboratori es: M/mm [address], [place] ? ? ? Hgb 13.7 (12. Final [facility] gm/dL 0-16 Reference .0) Laboratori es: gm/d [address], [place] ? ? ? Hct 41.8 % (37. Final [facility] 0-47 Reference .0) Laboratori es: % [address], [place] ? ? ? Mcv 89.5 fL (80. Final [facility] 0-10 Reference 0.0) Laboratori es: fL [address], [place] ? ? ? Mch 29.3 pg (27. Final [facility] 0-34 Reference .0) Laboratori es: pg [address], [place] ? ? Low Mchc 32.8 % (33. Final [facility] 0-37 Reference .0) Laboratori es: % [address], [place] ? ? ? Plt 226 (150 Final [facility] K/mm3 -460 Reference ) Laboratori es: K/mm [address], [place] ? ? ? RDW-SD 40.6 fL (<47 Final [facility] .0) Reference fL Laboratori es: [address], [place] ? ? ? Mpv 11.0 fL (9.4 Final [facility] -12. Reference 4) Laboratori es: fL [address], [place] ? ? ? Automated 0.0 ? Final [facility] NRBC #/100 Reference WBC's Laboratori es: [address], [place] ? ? ? Abs. NRBC 0.0 ? Final [facility] K/mm3 Reference Laboratori es: [address], [place] 02/26/2013 Streptococcus ? Specimen throat ? Fin al [facility] a, Description swab Ref erence Culture, Laborato elsie: Throat [address], [place] ? ? ? Special none ? Final [facility] Requests Referenc e Laboratori es: [address], [place] ? ? ? Culture no ? Final [facility] A Reference beta Laboratori es: hemolyt [address], [place] cocci isolate d ? ? ? Report Status final ? Final [facility] Reference 013 Laboratori es: [address], [place] ? Audiogram ? Left 125 normal ? ? In-O ffice Order: Internal U se Only DO No t Attach Compendium DO Not Attach Compendium , Do Not Delete/arjun ge ? ? ? Right 125 normal ? ? In-Off ice Order: Internal U se Only DO No t Attach Compendium DO Not Attach Compendium , Do Not Delete/arjun ge ? ? ? Left 250 normal ? ? In-Offi ce Order: Internal U se Only DO No t Attach Compendium DO Not Attach Compendium , Do Not Delete/arjun ge ? ? ? Right 250 normal ? ? In-Off ice Order: Internal U se Only DO No t Attach Compendium DO Not Attach Compendium , Do Not Delete/arjun ge ? ? ? Left 500 normal ? ? In-Offi ce Order: Internal U se Only DO No t Attach Compendium DO Not Attach Compendium , Do Not Delete/arjun ge ? ? ? Right 500 normal ? ? In-Off ice Order: Internal U se Only DO No t Attach Compendium DO Not Attach Compendium , Do Not Delete/arjun ge ? ? ? Left 1000 normal ? ? In-Off ice Order: Internal U se Only DO No t Attach Compendium DO Not Attach Compendium , Do Not Delete/arjun ge ? ? ? Right 1000 normal ? ? In-Of fice Order: Internal U se Only DO No t Attach Compendium DO Not Attach Compendium , Do Not Delete/arjun ge ? ? ? Left 2000 normal ? ? In-Off ice Order: Internal U se Only DO No t Attach Compendium DO Not Attach Compendium , Do Not Delete/arjun ge ? ? ? Right 2000 normal ? ? In-Of fice Order: Internal U se Only DO No t Attach Compendium DO Not Attach Compendium , Do Not Delete/arjun ge ? ? ? Left 4000 normal ? ? In-Off ice Order: Internal U se Only DO No t Attach Compendium DO Not Attach Compendium , Do Not Delete/arjun ge ? ? ? Right 4000 normal ? ? In-Of fice Order: Internal U se Only DO No t Attach Compendium DO Not Attach Compendium , Do Not Delete/arjun ge ? ? ? Left 6000 normal ? ? In-Off ice Order: Internal U se Only DO No t Attach Compendium DO Not Attach Compendium , Do Not Delete/arjun ge ? ? ? Right 6000 normal ? ? In-Of fice Order: Internal U se Only DO No t Attach Compendium DO Not Attach Compendium , Do Not Delete/arjun ge ? ? ? Left 8000 normal ? ? In-Off ice Order: Internal U se Only DO No t Attach Compendium DO Not Attach Compendium , Do Not Delete/arjun ge ? ? ? Right 8000 normal ? ? In-Of fice Order: Internal U se Only DO No t Attach Compendium DO Not Attach Compendium , Do Not Delete/arjun ge ? Audiogram Normal Right Ear normal ? ? In- Office 500Hz Order: Internal U se Only DO No t Attach Compendium DO Not Attach Compendium , Do Not Delete/arjun ge ? ? Normal Left Ear normal ? ? In-Offi ce 500Hz Order: Internal U se Only DO No t Attach Compendium DO Not Attach Compendium , Do Not Delete/arjun ge ? ? Normal Right Ear normal ? ? In-Off ice 1000Hz Order: Internal U se Only DO No t Attach Compendium DO Not Attach Compendium , Do Not Delete/arjun ge ? ? Normal Left Ear normal ? ? In-Offi ce 1000Hz Order: Internal U se Only DO No t Attach Compendium DO Not Attach Compendium , Do Not Delete/arjun ge ? ? Normal Right Ear normal ? ? In-Off ice 2000Hz Order: Internal U se Only DO No t Attach Compendium DO Not Attach Compendium , Do Not Delete/arjun ge ? ? Normal Left Ear normal ? ? In-Offi ce 2000Hz Order: Internal U se Only DO No t Attach Compendium DO Not Attach Compendium , Do Not Delete/arjun ge ? ? Normal Right Ear normal ? ? In-Off ice 4000Hz Order: Internal U se Only DO No t Attach Compendium DO Not Attach Compendium , Do Not Delete/arjun ge ? ? Normal Left Ear normal ? ? In-Offi ce 4000Hz Order: Internal U se Only DO No t Attach Compendium DO Not Attach Compendium , Do Not Delete/arjun ge ? Rapid Strep ? Strep negativ ? ? In-O ffice Group a, e Order: Throat Internal U se Only DO No t Attach Compendium DO Not Attach Compendium , Do Not Delete/arjun ge ? Audiometry Normal Right Ear normal ? ? In -Office 500Hz Order: Internal U se Only DO No t Attach Compendium DO Not Attach Compendium , Do Not Delete/arjun ge ? ? Normal Left Ear normal ? ? In-Offi ce 500Hz Order: Internal U se Only DO No t Attach Compendium DO Not Attach Compendium , Do Not Delete/arjun ge ? ? Normal Right Ear normal ? ? In-Off ice 1000Hz Order: Internal U se Only DO No t Attach Compendium DO Not Attach Compendium , Do Not Delete/arjun ge ? ? Normal Left Ear normal ? ? In-Offi ce 1000Hz Order: Internal U se Only DO No t Attach Compendium DO Not Attach Compendium , Do Not Delete/arjun ge ? ? Normal Right Ear normal ? ? In-Off ice 2000Hz Order: Internal U se Only DO No t Attach Compendium DO Not Attach Compendium , Do Not Delete/arjun ge ? ? Normal Left Ear normal ? ? In-Offi ce 2000Hz Order: Internal U se Only DO No t Attach Compendium DO Not Attach Compendium , Do Not Delete/arjun ge ? ? Normal Right Ear normal ? ? In-Off ice 4000Hz Order: Internal U se Only DO No t Attach Compendium DO Not Attach Compendium , Do Not Delete/arjun ge ? ? Normal Left Ear normal ? ? In-Offi ce 4000Hz Order: Internal U se Only DO No t Attach Compendium DO Not Attach Compendium , Do Not Delete/arjun ge Past Encounters 10/27/2021 Generalized Anxiety Disorder Rex Alejandre MD: [address] [facility] [address] [place] [phone], Ph. 09/28/2021 Generalized Anxiety Disorder Rex Alejandre MD: [id number] [facility] [address] [place] [phone], Ph. 03/29/2021 Adult Health Examination; Attention Defi cit Hyperactivity Disorder; Eating Disorder; Generalized Anxiety Disorder; Abscess [facility] [address] [place] [phone], Ph. Social History Tobacco Smoking Status Former Smoker Notes: quit Mar 2020 Vaccine List Vaccine Type DTaP 2001 2001 2001 11/19/2002 04/13/2005 Hep B, adolescent or pediatric 2001 2001 02/21/2002 Hib (HbOC) 2001 2001 2001 11/19/2002 HPV, quadrivalent 11/14/2012 01/13/2013 05/19/2013 influenza, injectable, quadrivalent, pre servative free 03/14/2017?0.5 mL 02/26/2020 02/27/2020?0.5 mL influenza, seasonal, injectable 05/23/2007 02/24/2010 05/17/2011 06/20/2012 IPV 2001 2001 2001 04/13/2005 meningococcal MCV4P 12/03/2014?0.5 mL 12/17/2017?0.5 mL MMR 05/22/2002 05/15/2006 pneumococcal conjugate PCV 7 2001 2001 2001 Tdap 11/14/2012 varicella 05/22/2002 10/21/2009 Plan of Care Patient Instructions call or return for worsening or concern s. Reminders Provider Appointments None recorded. ? ? Lab None recorded. ? ? Referral None recorded. ? ? Procedures None recorded. ? ? Surgeries None recorded. ? ? Imaging None recorded. ? ? Vitals 10/27/2021 03:40PM [id number] Height 5 ft 3 in 09/28/2021 11:30AM FOLLOW UP 1 Height Weight BMI Blood Pressure 5 ft 3 in 100 lbs 1 oz 17.7 kg/m2 99/62 mm[Hg] 03/29/2021 11:00AM PE EST Height Weight BMI Blood Pressure 5 ft 3 in 103 lbs 4 oz 18.3 kg/m2 100/67 mm[Hg] 04/30/2020 01:45PM [email or web address] Height 5 ft 3 in 02/26/2020 02:15PM PE EST Height Weight BMI Blood Pressure 5 ft 3 in 115 lbs 16 oz 20.5 kg/m2 110/71 mm[Hg] 12/19/2018 01:45PM [facility](30MIN) Height Weight BMI Blood Pressure 5 ft 2.5 in 115 lbs 16 oz 20.9 kg/m2 118/62 mm[Hg] 12/17/2017 01:45PM [facility](30MIN) Height Weight BMI 5 ft 2.25 in 108 lbs 19.6 kg/m2 09/10/2017 02:45PM FOLLOW UP Weight Blood Pressure 104 lbs 122/62 mm[Hg] 06/14/2017 02:30PM FOLLOW UP Weight Blood Pressure 95 lbs 2 oz 101/66 mm[Hg] 03/14/2017 02:15PM FOLLOW UP Height Weight BMI Blood Pressure 5 ft 1 in 98 lbs 16 oz 18.7 kg/m2 118/62 mm[Hg] 12/13/2016 02:30PM [facility](30MIN) Height Weight BMI Blood Pressure 5 ft 1 in 101 lbs 16 oz 19.3 kg/m2 116/70 mm[Hg] 09/21/2016 04:15PM FOLLOW UP Height Weight BMI Blood Pressure 5 ft 1.5 in 100 lbs 6.4 oz 18.7 kg/m2 102/62 mm[Hg] 03/22/2016 03:00PM FOLLOW UP 30MIN Height Weight BMI Blood Pressure 5 ft 1.5 in 102 lbs 16 oz 19.1 kg/m2 114/62 mm[Hg] 03/11/2016 08:30AM ANY 15 Height Weight BMI Blood Pressure 5 ft 1.5 in 110 lbs 6.4 oz 20.5 kg/m2 121/83 mm[Hg] 03/06/2016 03:30PM URGENT Height Weight BMI Blood Pressure 5 ft 1.5 in 101 lbs 18.8 kg/m2 118/72 mm[Hg] 12/09/2015 03:45PM [facility](30MIN) Height Weight BMI Blood Pressure 5 ft 1.5 in 111 lbs 20.6 kg/m2 102/60 mm[Hg] 07/27/2015 11:30AM URGENT Height Weight BMI Blood Pressure 5 ft 112 lbs 21.9 kg/m2 118/72 mm[Hg] 03/18/2015 01:30PM UV30 Height Weight BMI Blood Pressure 5 ft 98 lbs 19.1 kg/m2 99/67 mm[Hg] 12/03/2014 03:30PM [facility](15MIN) Height Weight BMI Blood Pressure 5 ft 95 lbs 18.6 kg/m2 118/70 mm[Hg] 05/13/2014 04:30PM UV30 Height Weight BMI Blood Pressure 4 ft 11 in 86 lbs 17.4 kg/m2 108/70 mm[Hg] 03/10/2014 01:30PM URGENT Height Weight BMI Blood Pressure 4 ft 11 in 83 lbs 9.6 oz 16.9 kg/m2 106/58 mm[Hg] 03/05/2014 11:30AM URGENT Height Weight BMI Blood Pressure 4 ft 11 in 86 lbs 17.4 kg/m2 102/62 mm[Hg] 11/27/2013 Height Weight 4 ft 11 in 81 lbs 02/26/2013 Height Weight Blood Pressure 4 ft 8.25 in 75 lbs 4 oz 115/72 mm[Hg] 11/14/2012 Height Weight 4 ft 8.25 in 67 lbs 11/11/2012 Height Weight Blood Pressure 4 ft 6 in 69 lbs 3.2 oz 104/60 mm[Hg] 10/25/2012 Height Weight 4 ft 6 in 68 lbs 10/05/2012 Height Weight 4 ft 6 in 68 lbs 07/01/2012 Weight Blood Pressure 68 lbs 6.4 oz 100/58 mm[Hg] 02/21/2012 Height Weight Blood Pressure 4 ft 6 in 64 lbs 3.2 oz 101/64 mm[Hg] 11/09/2011 Height Weight 4 ft 6 in 62 lbs 09/21/2011 Height Weight 4 ft 5 in 61 lbs 08/22/2011 Weight Blood Pressure 62 lbs 92/60 mm[Hg] 05/17/2011 Weight Blood Pressure 69 lbs 8 oz 103/67 mm[Hg] 03/15/2011 Weight Blood Pressure 70 lbs 1.92 oz 92/59 mm[Hg] 10/27/2010 Height Weight Blood Pressure 4 ft 5 in 63 lbs 97/58 mm[Hg] 05/18/2010 Weight Blood Pressure 57 lbs 104/58 mm[Hg] 03/31/2010 Weight Blood Pressure 55 lbs 104/64 mm[Hg] 02/24/2010 Weight Blood Pressure 57 lbs 6.4 oz 102/60 mm[Hg] 10/21/2009 Height Weight Blood Pressure 4 ft 2 in 51 lbs 9.6 oz 100/62 mm[Hg] 01/11/2009 Weight 52 lbs 4 oz 09/02/2008 Weight 51 lbs 3.2 oz 08/26/2008 Height Weight Blood Pressure 3 ft 11 in 49 lbs 90/60 mm[Hg] 09/06/2007 Weight Blood Pressure 44 lbs 4 oz 80/54 mm[Hg] 05/23/2007 Height Weight 3 ft 9 in 41 lbs 12.8 oz 01/30/2007 Weight 38 lbs 1.92 oz 11/20/2006 Weight 39 lbs 06/13/2006 Weight 36 lbs 4 oz
--- NOTE | 2022-04-11 08:14 | ED.GENADULT ---
HPI - General Adult General Chief complaint: Ear Problems Stated complaint: ear pain, cough Time Seen by Provider: 04/11/22 07:32 History of Present Illness HPI narrative: Patient is a 22 year female presents today with having coughing congestion upper respiratory symptoms. Also having earache. Also having a sore throat. Patient feels generalized malaise week. She is from home. Not vaccinated for COVID. Related Data Previous Rx's Medication Instructions Recorded cephalexin 500 mg tablet 500 mg PO Q6H 10 days #40 tabs 12/30/21 doxycycline hyclate 100 mg capsule 100 mg PO BID 10 days #20 caps 12/30/21 fluconazole 150 mg tablet 150 mg PO Q3D 2 doses #2 tabs 12/31/21 (Diflucan) azithromycin 250 mg tablet See Rx Instructions PO .COMPLEX 04/11/22 upper resp infection #6 tabs ibuprofen 400 mg tablet 400 mg PO Q6H PRN pain #20 tabs 04/11/22 Allergies Allergy/AdvReac Type Severity Reaction Status Date / Time amoxicillin [AMOXICILLIN] Allergy Unknown N/V Verified 12/30/21 19:45 Penicillins [PENICILLINS] Allergy Unknown UNKNOWN Verified 12/30/21 19:45 Review of Systems Review of Systems: Positive coughing congestion upper respiratory symptoms positive uric on the right side. Yes all other systems are reviewed and are negative PMF Past Medical History Attestation statement: The following information was validated with the patient. Social History Social History Advance Directives: No Advance Directives Information Provided: No Physical Exam ED Vital Signs: Vital Signs - 24 hr 04/11/22 06:35 04/11/22 08:29 Temperature 98.2 F Pulse Rate 105 H 93 Respiratory Rate 22 H 18 Blood Pressure 117/75 111/64 Pulse Oximetry 94 95 Oxygen Delivery Method Room Air Room Air BMI result Body Mass Index 20.5 Appearance: Alert. Oriented X3. No acute distress. Eyes: Pupils equal, round and reactive to light. ENT: TM on the right ears shows a bulging eardrum. Light reflex was told. Left eardrum was normal. Nose is patent mucous membranes moist. There is slight erythema noted to the tonsils bilaterally. Uvula not enlarged. Neck: Normal inspection. Neck supple. No lymph nodes noted. No crepitus CVS: Normal heart rate and rhythm. Pulses normal. Normal S1 and S2 Respiratory: No respiratory distress. Breath sounds normal. No Wheezing. No rales Abdomen: Soft and nontender. No rigidity. No distention. good BS x4 Skin: Skin warm and dry. Normal skin color. Normal skin turgor. Extremities: No lower extremity edema. Neurovascular intact to all extremities. No Lacerations. No Rash Neuro: Oriented X 3. No motor deficit. No sensory deficit. Moving all extermities. No slurred speech Medical Decision Making MDM Narrative Medical decision making narrative: Rapid strep was negative. Patient's COVID test was negative. RSV flu negative. Will start patient on Zithromax for earache. Motrin for generalized malaise aches. Will discharge patient home. Lab Data Labs: Lab Results 04/11/22 04/11/22 Range/Units 07:39 08:15 Influenza Type A (PCR) NEGATIVE (Negative) Influenza Type B (PCR) NEGATIVE (Negative) RSV RNA Qual (PCR) NEGATIVE (Negative) SARS-CoV-2 RNA (RT-PCR) NEGATIVE (Negative) S. pyogenes GrpA MALINA Negative (Negative) Discharge Plan Discharge Clinical Impression: Otitis media Patient Disposition: Home, Self-Care Instructions: Ear Infection (ED) Prescriptions: New azithromycin 250 mg tablet See Rx Instructions .ROUTE .COMPLEX Qty: 6 0RF Rx Instructions: take 500 mg today (day 1), then 250 mg for 4 days (days 2-5) ibuprofen 400 mg tablet 400 mg PO Q6H PRN (Reason: pain) Qty: 20 0RF No Action doxycycline hyclate 100 mg capsule 100 mg PO BID 10 Days Qty: 20 0RF cephalexin 500 mg tablet 500 mg PO Q6H 10 Days Qty: 40 0RF fluconazole [Diflucan] 150 mg tablet 150 mg PO Q3D Qty: 2 0RF Referrals: Physician,Nonstaff [Primary Care Provider] - 5 days
[2022-04-11 08:24] LABS: Influenza A PCR NEGATIVE (Negative); Influenza B PCR NEGATIVE (Negative); Resp Syncy Virus RNA Qual PCR NEGATIVE (Negative); SARS COV2 PCR INHOUSE NEGATIVE (Negative)
[2022-04-11 08:29] VITALS: BP 111/64; PULSE 93; RESP 18; O2SAT 95
[2022-04-11 08:44] LABS: Strep A Nucleic Acid Negative (Negative)
== END 2022-04-11 09:14 | disposition home or self-care (01) ==
PROVIDERS: Emergency Provider Emergency Medicine Emergency Medical Services
DX: H66.91 Otitis media, unspecified, right ear (principal); Z20.822 Contact with and (suspected) exposure to COVID-19; J02.9 Acute pharyngitis, unspecified
CPT/HCPCS: 0241U; 36415; 87651; 99283; 99284

== ENCOUNTER 2024-06-03 04:31 | Emergency (ER) | payer OTHER, SELFPAY ==
[2024-06-03 04:34] VITALS: BP 109/63; PULSE 102; RESP 18; TEMP 37.2; O2SAT 97; BMI 20.8
[2024-06-03 05:01] LABS: IDNOW Serial# 6674DD1D; Strep A Nucleic Acid Negative (Negative)
[2024-06-03 05:26] LABS: Influenza A PCR NEGATIVE (Negative); Influenza B PCR NEGATIVE (Negative); Resp Syncy Virus RNA Qual PCR NEGATIVE (Negative); SARS COV2 PCR INHOUSE NEGATIVE (Negative)
--- OUTSIDE RECORDS SUMMARY | 2024-06-03 07:59 | XMS_ITS | Data Portability ---
Author Organization [facility], Main Office Address [address] [place] [address] Care Team Providers Care Jacquard Fixer Name Role Phone REX ALEJANDRE Primary Care Provider LISHA HANDLEY Referring Provider RUTHIE HELTON Referring Provider [phone] KUMAR MOODY Referring Provider HALINA BAEZA Referring Provider [phone] [facility] (ADULT INTAKE) [facility]ini [facility] Psychologist Assessment Encounter Date Assessment Date Assessment LastModified by Organization Details LastModified Time 04/30/2020 04/30/2020 This service was provided using telemedicine. Patient consented to video & audio visit Patient was located at at home Provider was located in the office. No other persons participated in the telemedicine visit except for the patient unless otherwise indicated here. Total time of visit was 20 minutes. Video inspection of area around eyes is not revealing. Given the symptoms of eye pain, I recommended that she see an eye-career education teacher. She reports swelling and pain around the nasolacrimal duct, so I offered her abx for possible dacrocystitis, which she can start if she is not able to see the water pollution specialist today (Sunday afternoon). [email or web address] Not available 05/02/2020 15:24:12 10/27/2021 10/27/2021 This service was provided using telemedicine. Patient consented to telephone visit Patient was located in the [facility]. Provider was located in the office. No other persons participated in the telemedicine visit except for the patient unless otherwise indicated here. {{}} Total time of visit was 11 minutes. [email or web address] Not available 10/27/2021 17:51:17 Plan of Treatment Reminders Order Date Submit Date Provider Last Modified By Organization Details Last Modified Time Details Appointments None recorded. Lab None recorded. Referral facility operations manager referral 2019 020 maria del rosario [place], [address] [place], [address], 14:16:54 psychiatris t referral - Medication consultatio n with Narciso Cee MD 2020 021 [email or web address] [facility] (Adult Intake), [address], [address], 11:08:39 Procedures None recorded. Surgeries None recorded. Imaging None recorded. Medication Orders cefuroxime axetil 500 mg tablet 2019 020 [email or web address] 3 [id number], [address] [place], [place], [id number], 11:14:14 gabapentin 100 mg capsule 2021 022 [id number], [address] [place], [address], 2 03:33:50 gabapentin 100 mg capsule 2022 023 [id number], [address] [place], [address], 3 07:55:53 Patient TargetsNo targets recorded. Patient Instructions Encounter Date Encounter Id Patient Instructions Last Modified By Organization Details Last Modified Time 03/29/2021 [id number] skin abscess: care instructions [email or web address] Not available 03/29/2021 11:53:58 call or return for worsening or concerns. [email or web address] Not available 03/29/2021 11:47:01 09/28/2021 [id number] anxiety disorder: care instructions [email or web address] Not available 09/28/2021 12:50:01 10/27/2021 [id number] anxiety disorder: care instructions [email or web address] Not available 10/27/2021 17:51:18 11/28/2022 [id number] anxiety disorder: care instructions [email or web address] Not available 11/30/2022 07:55:51 Reason for Referral Radiology Supervisor Referral for Franki n of left eye Eye pain without trauma, left greater than right Referring Physician: Patrice López, Internal Medicine, Encounter Date: 04/30/2020 Psychiatrist Referral for Ge neralized anxiety disorder Medication Consultation Medication consultation with Narciso Cee MD Referring Physician: Frieda Taveras, Family Medicine, Encounter Date: 03/29/2021 Problems Name Problem SNOMED Code Status Onset Date Resolution Date Notes Provider Name and Address Organization Details Recorded Time Acute pharyngi tis 342040306 Completed 201112/23/2013 RECORDED 02/21/20 12 11:42AM BY NAI SERRA MA, ANNOTATI ON/WENDY wang [facility] 7 16:17:51 Acute sinusiti s [id number] Completed 201112/23/2013 RECORDED 02/21/20 12 11:42AM BY NAI SERRA MA, ANNOTATI ON/[facility] [place] 7 16:17:44 Acute upper respirat ory infectio n [id number] Completed 201212/23/2013 IMPRESSI ON: VIRAL. CALL IF WORSENIN G. WILL LAST 1-3 WEEKS. ADD AFRIN SINCE HAVING POSTNASA L DRIP. NO MORE THAN 4 DAYS. CONTINUE USING FLONASE; RECORDED 10/06/19 13 10:58AM BY FIDEL LORA ON/WENDY wang [facility] 7 16:18:45 Noninfec tious gastroen teritis [id number] Completed 201212/23/2013 IMPRESSI ON: AFEBRILE , NON-ACUT E ABDOMEN, ENCOURAG E CLEAR FLUIDS; RECORDED 10/06/19 13 10:58AM BY FIDEL LORA ON/WENDY salmon MD [address], [place], [address], [facility] 6 17:33:29 Allergic rhinitis [id number] Completed 201309/21/2016 RECORDED 11/28/19 14 4:01PM BY SELENA HAMLIN I, WELL CHILD VISITS Alaina Suárez [facility] 7 16:18:31 Conjunct ivitis [id number] Completed 201112/23/2013 RECORDED 02/21/20 12 11:42AM BY NAI SERRA MA, FIDEL ON/WENDY salmon MD [address], [place], [address], [facility] 6 17:33:29 Cough [id number] Completed 201112/23/2013 RECORDED 02/21/20 12 11:42AM BY NAI SERRA MA, FIDEL ON/WENDY salmon MD [address] [address], [place], [address], [facility] 6 17:33:29 Diarrhea [id number] Completed 201112/23/2013 RECORDED 02/21/20 12 11:42AM BY NAI SERRA MA, FIDEL ON/WENDY salmon MD [address], [place], [address], [facility] 6 17:33:29 Epistaxi s Completed 201112/23/2013 IMPRESSI ON: PROBABLY D/T DRY NASAL MUCOSA, RECOMMEN D NASAL MOISTURI ZATION; RECORDED 02/21/20 12 11:42AM BY NAI SERRA MA, FIDEL ON/WENDY salmon MD [address] [address], [place], [address], [facility] 6 17:33:29 Gastroes ophageal reflux disease 533784647 Completed 201112/23/2013 RECORDED 02/21/20 12 11:42AM BY NAI SERRA MA, ANNOTATI ON/ADDEN DUM Rex salmon MD [address], [place], [address], [facility] 6 17:33:29 Failure to thrive 45684229 Completed 201309/21/2016 Alaina Suárez [place] [facility] [place] 7 16:18:41 Influenz a vaccine needed [id number] 06 Completed 201212/23/2013 RECORDED 06/20/19 13 4:46PM BY SELENA HAMLIN I, NURSE VISIT Rex salmon MD [address], [place], [address], [facility] 6 17:33:29 Headache [id number] Completed 201112/23/2013 RECORDED 02/21/20 12 11:42AM BY NAI SERRA MA, ANNOTATI ON/ADDEN DUM Alaina wang, [facility] 7 16:18:02 Administ ration of viral vaccine Completed 201212/03/2014 RECORDED 05/19/20 13 4:02PM BY SELENA HAMLIN I, NURSE VISIT Rex salmon MD [address], [place], [address], [facility] 6 17:33:29 Administ ration of viral vaccine Completed 201212/23/2013 RECORDED 11/15/19 13 4:37PM BY REX POTTER MD, WELL CHILD VISITS Rex salmon MD [address], [place], [address], [facility] 6 17:33:29 Varicell a vaccinat ion Completed 200912/23/2013 RECORDED 10/22/19 10 2:51PM BY REX POTTER MD, WELL CHILD VISITS Rex salmon MD [address], [place], [address], [facility] 6 17:33:29 Infectiv e otitis externa [id number] Completed 201112/23/2013 RECORDED 02/21/20 12 11:42AM BY NAI SERRA MA, FIDEL ON/ADDEN DUM Rex salmon MD [address], [place], [address], [facility] 6 17:33:29 Eruption [id number] Completed 201112/23/2013 RECORDED 02/21/20 12 11:42AM BY ANI SERRA MA, FIDEL ON/ CARLO salmon MD [address], [place], [address], [facility] 6 17:33:29 Well child [id number] Completed 201212/23/2013 RECORDED 02/27/20 13 11:49AM BY JULIAN BARRAGAN MA, FIDEL ON/ DUM Rex salmon MD [address], [place], [address], [facility] 6 17:33:29 Sprain of knee and leg Completed 201112/23/2013 IMPRESSI ON: A HANDOUT WAS GIVEN FOR THIS.; RECORDED 02/21/20 12 11:42AM BY NAI SERRA MA, FIDEL ON/ADDEN CARLO salmon MD [address], [place], [address], [facility] 6 17:33:29 Administ ration of diphther ia, pertussi s, and tetanus vaccine Completed 201212/23/2013 RECORDED 02/27/20 13 11:49AM BY JULIAN BARRAGAN MA, FIDEL ON/ CARLO salmon MD [address], [place], [address], [facility] 6 17:33:29 Insect bite to leg - nonvenom ous [id number] Completed 201212/23/2013 IMPRESSI ON: PT SUCCESSF ULLY REMOVED IT LESS THAT 24 HOURS AFTER ATTACHME NT. RESIDUAL MOUTHPAR T REMAIN VISIBLE. NO CURRENT EVIDENCE FOR CELLULIT S OR ECM RASH. LOCAL WOUND CARE/WAR M COMPRESS ADVISED BUT FURTHER EXPLORAT ION DEFERRED AT THIS TIME. ADVISED TO CALL WITH S/S OF INFECTIO N (AUDRA ECM RASH) OR IF FEVER/AR THRALGIA S OR FATIGUE ARE NOTED. LYME TRANSMIS TIMI UNLIKELY . CONSIDER COURSE OF AMOX OR AUGMENTI N IF EVIDENCE OF INFECTIO N ARE NOTED.; RECORDED 10/26/19 13 2:31PM BY FIDEL LORA ON/WENDY salmon MD [address], [place], [address], [facility] 6 17:33:29 Intestin al infectio us disease 839340459 Completed 201212/23/2013 RECORDED 11/15/19 13 4:05PM BY FIDEL LORA ON/WENDY salmon MD [address], [place], [address], [facility] 6 17:33:29 Acute upper respirat ory infectio n [id number] Completed 201209/21/2016 RECORDED 02/27/20 13 12:15PM BY EDWARD PEARSON PA-C, OFFICE VISIT Alaina Suárez MA [facility] 7 16:18:45 Function al visual loss 603101116 Completed 201112/23/2013 RECORDED 02/21/20 12 11:42AM BY NAI SERRA MA, TOMMYATI ON/WENDY salmon MD [address], [place], [address], [facility] 6 17:33:29 Vomiting [id number] Completed 201112/23/2013 RECORDED 02/21/20 12 11:42AM BY NAI SERRA MA, FIDEL ON/ADDKRIS salmon MD [address], [place], [address], [facility] 6 17:33:29 Wrist joint pain 682350692 Completed 201212/23/2013 IMPRESSI ON: SUSPECT TENDONIT IS WRIST. SHE WILL TRY TAKING AN NSAID ALTHOUGH MAY NEED A LOT OF CONVINCI NG. F DOES NOT IMPROVE IN 4 DAYS WITH NSAID THEN DO X-RAY. IF PAIN PERSISTS WOULD DO HAND SURGEON REFERRAL . REST HANDS. NO COMPUTER . 1 WEEK OF SCHOOL WITH LIMITED WRITING. LETTER GIVEN; RECORDED 11/12/19 13 10:48AM BY SHEEBA BAH MA, FIDEL ON/WENDY salmon MD [address], [place], [address], [facility] 6 17:33:29 Acute pharyngi tis [id number] Completed 201101/12/2014 RECORDED 02/21/20 12 11:42AM BY NAI SERRA MA, TOMMYATI ON/ADDKRIS Suárez MA null, [facility] 7 16:17:51 Acute sinusiti s 70982297 Completed 201101/12/2014 RECORDED 02/21/20 12 11:42AM BY NAI SERRA MA, TOMMYATI ON/ADDKRIS Suárez MA null, [facility] 7 16:17:44 Acute upper respirat ory infectio n [id number] Completed 201201/12/2014 IMPRESSI ON: VIRAL. CALL IF WORSENIN G. WILL LAST 1-3 WEEKS. ADD AFRIN SINCE HAVING POSTNASA L DRIP. NO MORE THAN 4 DAYS. CONTINUE USING FLONASE; RECORDED 10/06/19 13 10:58AM BY FIDEL LORA ON/WENDY Suárez [facility] 7 16:18:45 Noninfec tious gastroen teritis [id number] Completed 201201/12/2014 IMPRESSI ON: AFEBRILE , NON-ACUT E ABDOMEN, ENCOURAG E CLEAR FLUIDS; RECORDED 10/06/19 13 10:58AM BY FIDEL LORA ON/WENDY salmon MD [address] [address], [place], [address], [facility] 6 17:33:29 Conjunct ivitis [id number] Completed 201101/12/2014 RECORDED 02/21/20 12 11:42AM BY NAI SERRA MA, FIDEL ON/WENDY salmon MD [address] [address], [place], [address], [facility] 6 17:33:29 Cough [id number] Completed 201101/12/2014 RECORDED 02/21/20 12 11:42AM BY NAI SERRA MA, ANNOTATI ON/WENDY salmon MD [address] [address], [place], [address], [facility] 6 17:33:29 Diarrhea [id number] Completed 201101/12/2014 RECORDED 02/21/20 12 11:42AM BY NAI SERRA MA, FIDEL ON/WENDY salmon MD [address] [address], [place], [address], [facility] 6 17:33:29 Epistaxi s Completed 201101/12/2014 IMPRESSI ON: PROBABLY D/T DRY NASAL MUCOSA, RECOMMEN D NASAL MOISTURI ZATION; RECORDED 02/21/20 12 11:42AM BY NAI SERRA MA, ANNOTATI ON/ADDEN DUM Rex salmon MD [address], [place], [address], [facility] 6 17:33:29 Gastroes ophageal reflux disease [id number] Completed 201101/12/2014 RECORDED 02/21/20 12 11:42AM BY NAI SERRA MA, ANNOTATI ON/WENDY salmon MD [address], [place], [address], [facility] 6 17:33:29 Influenz a vaccine needed [id number] 06 Completed 201201/12/2014 RECORDED 06/20/19 13 4:46PM BY SELENA HAMLIN I, NURSE VISIT Rex salmon MD [address], [place], [address], [facility] 6 17:33:29 Headache [id number] Completed 201101/12/2014 RECORDED 02/21/20 12 11:42AM BY NAI SERRA MA, TOMMYATI ON/ADDEN DUM Alaina wang, [facility] 7 16:18:02 Administ ration of viral vaccine Completed 201301/12/2014 RECORDED 11/07/19 14 1:30PM BY NAI SERRA MA, TOMMYATI ON/WENDY salmon MD [address], [place], [address], [facility] 6 17:33:29 Effusion of joint 922130654 Active 2013 Alaina wang, [facility] 7 16:18:01 Varicell a vaccinat ion Completed 200901/12/2014 RECORDED 10/22/19 10 2:51PM BY REX POTTER MD, WELL CHILD VISITS Rex salmon MD [address], [facility] [place], [address], [facility] 6 17:33:29 Infectiv e otitis externa [id number] Completed 201101/12/2014 RECORDED 02/21/20 12 11:42AM BY NAI SERRA MA, ANNOTATI ON/ADDEN DUM Rex salmon MD [address], [facility] [place], [address], [facility] 6 17:33:29 Eruption [id number] Completed 201101/12/2014 RECORDED 02/21/20 12 11:42AM BY NAI SERRA MA, ANNOTATI ON/ADDEN DUM Rex salmon MD [address], [place], [address], [facility] 6 17:33:29 Well child [id number] Completed 201312/03/2014 RECORDED 11/28/19 14 4:01PM BY SELENA HAMLIN I, WELL CHILD VISITS Rex salmon MD [address], [place], [address], [facility] 6 17:33:29 Well child [id number] Completed 201101/12/2014 RECORDED 02/21/20 12 11:42AM BY NAI SERRA MA, ANNOTATI ON/ADDEN DUM Rex salmon MD [address], [place], [address], [facility] 6 17:33:29 Sprain of knee and leg Completed 201101/12/2014 IMPRESSI ON: A HANDOUT WAS GIVEN FOR THIS.; RECORDED 02/21/20 12 11:42AM BY NAI SERRA MA, FIDEL ON/WENDY salmon MD [address], [place], [address], [facility] 6 17:33:29 Administ ration of diphther ia, pertussi s, and tetanus vaccine Completed 201201/12/2014 RECORDED 02/27/20 13 11:49AM BY JULIAN BARRAGAN MA, FIDEL ON/WENDY salmon MD [address], [place], [address], [facility] 6 17:33:29 Insect bite to leg - nonvenom ous [id number] Completed 201201/12/2014 IMPRESSI ON: PT SUCCESSF ULLY REMOVED IT LESS THAT 24 HOURS AFTER ATTACHME NT. RESIDUAL MOUTHPAR T REMAIN VISIBLE. NO CURRENT EVIDENCE FOR CELLULIT S OR ECM RASH. LOCAL WOUND CARE/WAR M COMPRESS ADVISED BUT FURTHER EXPLORAT ION DEFERRED AT THIS TIME. ADVISED TO CALL WITH S/S OF INFECTIO N (AUDRA ECM RASH) OR IF FEVER/AR THRALGIA S OR FATIGUE ARE NOTED. LYME TRANSMIS TIMI UNLIKELY . CONSIDER COURSE OF AMOX OR AUGMENTI N IF EVIDENCE OF INFECTIO N ARE NOTED.; RECORDED 10/26/19 13 2:31PM BY FIDEL LORA/WENDY salmon MD [address], [place], [address], [facility] 6 17:33:29 Intestin al infectio us disease 702245846 Completed 201201/12/2014 RECORDED 11/15/19 13 4:05PM BY FIDEL LORA/WENDY salmon MD [address], [place], [address], [facility] 6 17:33:29 Function al visual loss 783042115 Completed 201101/12/2014 RECORDED 02/21/20 12 11:42AM BY NAI SERRA MA, FIDEL ON/WENDY salmon MD [address], [place], [address], [facility] 6 17:33:29 Vomiting 260471322 Completed 201101/12/2014 RECORDED 02/21/20 12 11:42AM BY NAI SERRA MA, TOMMYATI ON/WENDY samlon MD [address], [place], [address], [facility] 6 17:33:29 Wrist joint pain 819497299 Completed 201201/12/2014 IMPRESSI ON: SUSPECT TENDONIT IS WRIST. SHE WILL TRY TAKING AN NSAID ALTHOUGH MAY NEED A LOT OF CONVINCI NG. F DOES NOT IMPROVE IN 4 DAYS WITH NSAID THEN DO X-RAY. IF PAIN PERSISTS WOULD DO HAND SURGEON REFERRAL . REST HANDS. NO COMPUTER . 1 WEEK OF SCHOOL WITH LIMITED WRITING. LETTER GIVEN; RECORDED 11/12/19 13 10:48AM BY SHEEBA BAH MA, TOMMYATI ON/WENDY salmon MD [address], [place], [address], [facility] 6 17:33:29 Acute sinusiti s [id number] Completed 09/21/2016 Alaina wang, [facility] 7 16:17:44 Headache [id number] Completed 09/21/[address] Lisha Handley; improved with chiropra ctic. Alaina wang, [facility] 7 16:18:02 Abdomina l pain 75114223 Completed 09/21/2016 Alaina wang, [facility] 7 16:17:47 Acute pharyngi tis 039425237 Completed 09/21/2016 Alaina Suárez MA null, [facility] 7 16:17:51 Psychiat kerline symptom 31126056 Active She has behavior concerns and is followed by psych. Both parents have schizoph rossi and MGM has custody. 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 Rex salmon MD [address], [place], [address], [facility] 7 09:15:43 Generali zed anxiety disorder 80201661 Active 2018 Seeing a therapis t. 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 No treatmen t necessar y. Rex salmon MD [address], [place], [address], [facility] 9 15:03:41 Dry eyes 985984354 Active 2019 Rex salmon MD [address], [place], [address], [facility] 0 15:03:12 Attentio n deficit hyperact ivity disorder , combined type 63141920 Active 2020 [facility] [place] 1 14:44:23 History of SARS-CoV -2 [id number] 3156567 Active 2022 Rex salmon MD [address], [place], [address], [facility] 3 07:54:51 Problem Notes None recorded. Procedures Surgical History Date Name Laterality Status Provider Name and Address Organization Details Recorded Time 09/12/19 17 Egd diagnostic brush wash completed Luly Bassett [facility] 09/15/2016 11:17:11 12/09/19 16 Developmental Screening completed Selena Cabezas [facility] 12/09/2015 15:50:40 12/04/19 15 Developmental Screening completed Selena Cabezas [facility] 12/03/2014 15:39:02 Imaging Results None recorded. Procedure Notes None recorded. Medical Equipment None Reported. Allergies Allergen ID Allergen Name Allergen Category Reaction Reaction Severity Criticality Documentation Date Start Date Code Code System Note Provider Name and Address Organization Details Recorded Time 07717 adhesive tape environme nt,medica tion rash Not available Not available 03/06/2016 [facility] [place] 6 15:27:55 8070 No known allergy (situatio n) Not available Not available Not available Not available 12/16/20132010 04123 6003 SNOMED COMME NT: RECOR DED 05/18 2:54P M BY OCTAVIA BARROSO MA, ANNOT ATION /ADDE NDUM; Not Available [facility] 4 13:25:08 8071 Medicinal product containin g penicilli n and acting as antibacte rial agent (product) medicatio n rash Not available Not available 12/16/20132013 89897 05 SNOMED GURDEEP [facility] 4 11:42:09 Medications Name Sig Start Date Stop Date Status Note LastModified by Organization Details LastModified Time ondansetr on odt 4 mg tbdp active Not Available Not Available Not Available lidocaine viscous 2 % soln active Not Available Not Available Not Available ziprasido ne hcl 20 mg caps active Not Available Not Available Not Available risperido ne 1 mg tabs active Not Available Not Available Not Available quetiapin e fumarate 50 mg tabs active Not Available Not Available Not Available a thru z select advanced tabs 03/11 completed Not Available Not Available Not Available benzonata te 100 mg caps active Not Available Not Available Not Available azithromy sophy 500 mg tabs active Not Available Not Available Not Available sertralin e hcl 50 mg tabs active Not Available Not Available Not Available loperamid e hcl 2 mg caps active Not Available Not Available Not Available monteluka st 5 mg chewable tablet 12/19 completed Not Available Not Available Not Available terconazo le 0.4 % vaginal cream INSERT 1 APPLICAT ION VAGINALL Y AT BEDTIME X 7 DAYS 03/29 completed Not Available Not Available Not Available neomycin- polymyxin -hydrocor t 3.5 mg/mL-10, 000 unit/mL-1 % ear solution FOUR TIMES DAILY 05/24 completed RECORDED 08/22/19 12 4:08PM BY EDWARD PEARSON PA-C, MEDICATI ON AUTO-LARS CTIVATIO N; Not Available Not Available Not Available miconazol e nitrate 100 mg vaginal supposito ry INSERT 1 UNWRAPPE D SUPPOSIT ORY VAGINALL Y ONCE A DAY AT BEDTIME FOR 14 DAYS 03/29 completed Not Available Not Available Not Available Nasarel 29 mcg (0.025 %) nasal spray 2 TIMES A DAY 10/21 completed RECORDED 10/22/19 10 2:42PM BY REX POTTER MD, ANNOTATI ON/ADDEN DUM;THIS ORDER DISCONTI NUED PER [facility] N. Not Available Not Available Not Available cetirizin e 10 mg tablet DAILY 11/26 completed RECORDED 11/27/19 13 8:24AM BY REX POTTER MD, ANNOTATI ON/ADDEN DUM; Not Available Not Available Not Available azithromy sophy 250 mg tablet TAKE 2 TABLETS BY MOUTH TODAY, THEN TAKE 1 TABLET DAILY FOR 4 DAYS 11/28 completed Not Available Not Available Not Available fluconazo le 150 mg tablet TAKE 150 MG ORALLY EVERY 3 DAYS FOR 2 DOSES 11/28 completed Not Available Not Available Not Available sumatript an 25 mg tablet 12/08 completed Not Available Not Available Not Available prednison e 20 mg tablet DAILY 01/17 completed RECORDED 10/09/19 10 1:37PM BY ARABELLA BARRAGAN, PA-C, MEDICATI ON [facility] N; Not Available Not Available Not Available sertralin e 100 mg tablet Take 1 tablet every day by oral route as directed for 30 days. 09/10 completed Not Available Not Available Not Available amoxicill in 400 mg chewable tablet TWO TIMES DAILY 09/14 completed RECORDED 11/03/19 09 12:58PM BY REX POTTER MD, MEDICATI ON AUT[facility]LARS CTIVATIO N; Not Available Not Available Not Available sulfameth oxazole 800 mg-trimet hoprim 160 mg tablet Take 1 tablet twice a day by oral route for 3 days. 02/25 completed Not Available Not Available Not Available omeprazol e 40 mg capsule,d elayed release Take 1 capsule every day by oral route. 09/21 completed Not Available Not Available Not Available cephalexi n 500 mg capsule TAKE 500 MG ORALLY EVERY 6 HOURS FOR 10 DAYS 11/28 completed Not Available Not Available Not Available melatonin 1.5 mg tablet HS 10/21 completed RECORDED 10/22/19 10 2:15PM BY SHEEBA BAH MA, WELL CHILD VISITS; Not Available Not Available Not Available polymyxin B sulfate 10,000 unit-trim ethoprim 1 mg/mL eye drops FOUR TIMES DAILY 05/25 completed RECORDED 10/28/19 11 3:38PM BY REX POTTER MD, MEDICATI ON [facility] CT[facility]AT[facility] N; Not Available Not Available Not Available methylphe nidate ER 20 mg tablet,ex tended release DAILY 05/17 completed RECORDED 05/17/20 11 1:14PM BY DAYLIN LUIS MA, OFFICE VISIT; Not Available Not Available Not Available ibuprofen 400 mg tablet TAKE 1 TABLET BY MOUTH EVERY 6 HOURS NEEDED FOR PAIN 11/28 completed Not Available Not Available Not Available nystatin- triamcino lone 100,000 unit/g-0. 1 % topical cream active Not Available Not Available Not Available mupirocin calcium 2 % topical cream 09/21 completed Not Available Not Available Not Available prednisol one 15 mg/5 mL oral solution DIRECTED 01/16 completed RECORDED 10/09/19 10 1:37PM BY ARABELLA BARRAGAN PA-C, MEDICATI ON [facility] N;15 ML DAY ONE, FOLLOWED BY 7 ML DAYS 2-5 Not Available Not Available Not Available amoxicill in 400 mg/5 mL oral suspensio n EVERY 8 HOURS 09/12 completed RECORDED 11/03/19 09 12:58PM BY REX POTTER MD, MEDICATI ON [facility] N; Not Available Not Available Not Available gabapenti n 100 mg capsule TAKE 2 CAPSULES BY MOUTH TWICE A DAY FOR 90 DAYS 2022 active Not Available Not Available Not Avai lable Nasonex 50 mcg/actua tion [place] DAILY 2008 active RECORDED 08/27/19 09 12:09PM BY REX POTTER MD, ANNOTATI ON/ADDEN DUM; Not Available Not Available Not Available azithromy sophy 200 mg/5 mL oral suspensio n DIRECTED 04/05 completed RECORDED 05/18/20 10 11:12AM BY ARABELLA BARRAGAN PA-C, MEDICATI ON [facility] N;6 ML DAY ONE, FOLLOWED BY 3 ML DAYS 2-5. Not Available Not Available Not Available cefuroxim e axetil 500 mg tablet TK 1 T PO BID FOR 7 DAYS 03/29 completed Not Available Not Available Not Available fluticaso ne propionat e 50 mcg/actua tion nasal spray,georgi pension Inhale 2 sprays every day by intranas al route each nostril for 30 days. 12/08 completed Not Available Not Available Not Available sertralin e 50 mg tablet 09/21 completed Not Available Not Available Not Available doxycycli ne hyclate 100 mg tablet TAKE 100 MG ORALLY 2 TIMES A DAY FOR 10 DAYS 11/28 completed Not Available Not Available Not Available loratadin e 10 mg tablet DAILY 12/08 completed Not Available Not Available Not Available risperido ne 0.5 mg tablet active Not Available Not Available Not Available albuterol (refill) 90 mcg/actua tion aerosol inhaler Q 4-6 HRS PRN COUGH/WH EEZE 04/29 completed RECORDED 04/29/20 12 2:40PM BY RUDI ROSA, ANNOTATI ON/WENDY DUM; Not Available Not Available Not Available dextroamp hetamine- amphetami ne ER 15 mg 24hr capsule,e xtend release Take 1 capsule every day by oral route as directed for 30 days. active Not Available Not Available No t Available Zithromax TRI-ISABELL 500 mg tablet Take 1 tablet every day by oral route as directed for 3 days. 2014 active Not Available Not Available Not Avai lable DAILY VITAMIN FORMULA-M INERALS tablet Take 1 tablet every day by oral route. 03/11 completed Not Available Not Available Not Available omeprazol e DAILY 10/20 completed RECORDED 11/09/19 12 3:54PM BY REX POTTER MD, MEDICATI ON AUT[facility]ARS CTIVATIO N; Not Available Not Available Not Available Aerochamb er Max - Mask Small DIRECTED 10/27 completed RECORDED 10/28/19 11 3:44PM BY GURDEEP PINEDA, WELL CHILD VISITS; Not Available Not Available Not Available Nexplanon 68 mg subdermal implant Inject 1 implant by subcutan eous route. 02/25 completed Not Available Not Available Not Available Vitals Date Recorded Body height Provider Name an d Address Organization Details Last Updated DateTime 04/30/2020 160.02 cm Tea Brunner MA [facility] 04/30/2020 13:38:08 Date Recorded Body height Body mass index (BMI) Body mass index (BMI) Percentile per age and sex Body weight Oxygen saturation Oxygen saturation in Arterial blood by Pulse oximetry Heart rate Body temperature Systolic blood pressure Diastolic blood pressure Provider Name and Address Organization Details Last Updated DateTime 1 160.02 cm 18.3 kg/m2 8 % 37446.4 1 g 99 % 99 % 77 /min 98.06 [degF] 100 mm[Hg] 67 mm[Hg] Rayna Mckee MA [facility] 1 11:13:37 Date Recorded Body height Body mass index (BMI) Body mass index (BMI) Percentile per age and sex Body weight Heart rate Oxygen saturation Oxygen saturation in Arterial blood by Pulse oximetry Body temperature Systolic blood pressure Diastolic blood pressure Provider Name and Address Organization Details Last Updated DateTime 2 160.02 cm 17.7 kg/m2 4 % 98385.5 9 g 79 /min 100 % 100 % 97.88 [degF] 99 mm[Hg] 62 mm[Hg] Carissa Nielson MA [facility] 2 11:40:31 Date Recorded Body height Provider Name an d Address Organization Details Last Updated DateTime 10/27/2021 160.02 cm Carissa Nielson MA [facility] 10/27/2021 15:25:31 Date Recorded Body height Body mass index (BMI) Body weight Heart rate Oxygen saturation Oxygen saturation in Arterial blood by Pulse oximetry Body temperature Systolic blood pressure Diastolic blood pressure Provider Name and Address Organization Details Last Updated DateTime 3 152.4 cm 19.4 kg/m2 58999.3 4 g 102 /min 98 % 98 % 97.9 [degF] 101 mm[Hg] 69 mm[Hg] Carissa Nielson MA [facility] 3 15:20:59 Social History Question Answer Notes LastModified by Organizat ion Details LastModified Time Tobacco Smoking Status Former Smoker quit Mar 2020 Rayna Mckee MA [facility] 03/29/2021 11:15:34 Do You Have An Advance Directive? No [id number] Information not available 04/06/2020 What Is Your Level Of Alcohol Consumption? Occasional Information not available 11/28/2022 Is Blood Transfusion Acceptable In An Emergency? Yes [id number] Information not available 04/06/2020 What Is Your Level Of Caffeine Consumption? None Information not available 11/28/2022 How Much Tobacco Do You Chew? None [id number] Information not available 04/06/2020 Are You Currently Employed? No [id number] Information not available 04/06/2020 What Type Of Diet Are You Following? REGULAR [id number] Information not available 04/06/2020 Do You Or Have You Ever Used E-cigarettes Or Vape? Current User Of Electronic Cigarettes Information not available 03/29/2021 What Is Your Home Situation? Relatives Lives With Grandparents Information not available 03/29/2021 Live Alone Or With Others? With Others MGRoma And Her [email or web address] Information not available 03/10/2014 Do You Take Precautions To Prevent Distracted Driving? Yes Does Not Drive Information not available 03/29/2021 How Often Do You Need To Have Someone Help You When You Read Instructions, Pamphlets, Or Other Written Material From Your Doctor Or Pharmacy? Sometimes [email or web address] Information not available 12/09/2015 Have You Or Anyone In Your Household Had Any Of The Following Symptoms In The Last 14 Days: Sore Throat, Cough, Chills, Body Aches For Unknown Reasons, Shortness Of Breath For Unknown Reasons, Loss Of Smell, Loss Of Taste, Fever At Or Greater Than 100 Degrees Fahrenheit? No [email or web address] Information not available 02/26/2020 Are You Or Anyone In Your Household A Health Care Provider Or Emergency Responder? No [email or web address] Information not available 02/26/2020 To The Best Of Your Knowledge Have You Been In Close Proximity To Any Individual Who Tested Positive For COVID-19? No [email or web address] Information not available 02/26/2020 Have You Recently Traveled To A COVID-19 High Risk Area Or Gathering In The Last 10 Days? No Information not available 03/29/2021 What Was The Date Of Your Most Recent Tobacco Screening? 11/28/2022 Information not available 11/28/2022 How Many Children Do You Have? 0 [id number] Information not available 04/06/2020 What Is Your Parents' Marital Status? Grandma And Grandpa Information not available 03/29/2021 Do You Use Your Seat Belt Or Car Seat Routinely? No Information not available 03/29/2021 Seat Belts Used Routinely No [email or web address] Information not available 12/09/2015 Are You Sexually Active? No [id number] Information not available 04/06/2020 Smoke Alarm In Home Yes Information not available 03/10/2014 Do You Have Smoke And Carbon Monoxide Detectors In Your Home? Yes [id number] Information not available 04/06/2020 At What Age Did You Start Smoking Tobacco? 1 [id number] Information not available 04/06/2020 Are You Passively Exposed To Smoke? No Information not available 03/10/2014 Do You Or Have You Ever Used Smokeless Tobacco? Never Used Smokeless Tobacco [id number] Information not available 04/06/2020 Do You Use Any Illicit Or Recreational Drugs? No [email or web address] Information not available 03/29/2021 Do You Use Sunscreen Routinely? No [id number] Information not available 04/06/2020 How Many Years Have You Smoked Tobacco? 0 [id number] Information not available 04/06/2020 Year In School 8 Dropped Out After 8th Grade Owing To Severe Anxiety [email or web address] Information not available 03/29/2021 Do You Or Have You Ever Used Any Other Forms Of Tobacco Or Nicotine? Yes Vape Information not available 11/28/2022 How Many Years Have You Used E-cigarettes Or Vape? 4 [email or web address] Information not available 03/29/2021 Sex: Female Functional Status Question Answer Note LastModified by Organization D etails LastModified Time Are you able to walk? YESWOREST [email or web address] Information not available 03/29/2021 Are you able to care for yourself? Yes [id number] Information not available 04/06/2020 What is your exercise level? None [id number] Information not available 04/06/2020 Mental Status None recorded. Family History Relationship Description Onset Age of this Age Resolved Age Notes LastModified by Organization Details LastModified Time Mother Argelia pollard Not available 2014 13:28:08 Medical History No medical history recorded. Gynecological History Statement/Question Response Menses Monthly Y Duration of Flow (days) 8 Age at Menarche 14 Current Control Method None LMP Approximate Sexually Active? Y Obstetrics History GPAL:G 0 P 0 0 0 0 Immunizations Vaccine Type Date Status Note Provider Nam e and Address Organization Details Recorded Time meningococcal MCV4P 5 completed Not Available [facility] 06/21/2019 02:21:51 Influenza, split virus, quadrivalent, PF 0 completed GURDEEP [place], [facility] 09/28/2021 14:46:58 Influenza, split virus, quadrivalent, PF 7 completed Not Available [facility] 06/21/2019 02:22:11 meningococcal MCV4P 8 completed Not Available [facility] 06/21/2019 02:21:55 Influenza, split virus, quadrivalent, PF 0 completed GURDEEP White, [facility] 02/27/2020 11:51:21 Tdap 3 completed Not Available [facility] 12/16/2013 14:04:08 HPV, quadrivalent 3 completed Not Available [facility] 12/16/2013 14:04:08 HPV, quadrivalent 3 completed Not Available [facility] 12/16/2013 14:04:08 Influenza, split virus, trivalent, preservative 0 completed Not Available [facility] 12/16/2013 14:04:08 Influenza, split virus, trivalent, preservative 7 completed Not Available [facility] 12/16/2013 14:04:08 MMR 6 completed Not Available [facility] 12/16/2013 14:04:08 DTaP 5 completed Not Available [facility]2013 14:04:08 IPV 5 completed Not Available [facility] 12/16/2013 14:04:08 Hib (HbOC) 3 completed Not Available [facility]/16/2013 14:04:08 DTaP 3 completed Not Available [facility] 12/16/2013 14:04:09 varicella 2 completed Not Available [facility] 12/16/2013 14:04:09 MMR 2 completed Not Available [facility] 12/16/2013 14:04:09 Hep B, adolescent or pediatric 2 completed Not Available [facility] 12/16/2013 14:04:09 pneumococcal conjugate PCV 7 2 completed Not Available [facility] 12/16/2013 14:04:09 DTaP 2 completed Not Available [facility] 12/16/2013 14:04:09 IPV 2 completed Not Available [facility] 12/16/2013 14:04:09 Hib (HbOC) 2 completed Not Available [facility] 12/16/2013 14:04:09 pneumococcal conjugate PCV 7 2 completed Not Available [facility] 12/16/2013 14:04:09 Hib (HbOC) 2 completed Not Available [facility] 12/16/2013 14:04:09 IPV 2 completed Not Available [facility] 12/16/2013 14:04:09 DTaP 2 completed Not Available [facility] 12/16/2013 14:04:09 DTaP 2 completed Not Available [facility] 12/16/2013 14:04:09 IPV 2 completed Not Available [facility] 12/16/2013 14:04:09 Hib (HbOC) 2 completed Not Available [facility] 12/16/2013 14:04:09 pneumococcal conjugate PCV 7 2 completed Not Available [facility] 12/16/2013 14:04:09 Hep B, adolescent or pediatric 1 completed Not Available [facility] 12/16/2013 14:04:09 Hep B, adolescent or pediatric 1 completed Not Available [facility] 12/16/2013 14:04:09 Influenza, split virus, trivalent, preservative 1 completed Not Available [facility] 12/16/2013 14:04:09 HPV, quadrivalent 3 completed Not Available [facility] 12/16/2013 14:04:09 Influenza, split virus, trivalent, preservative 3 completed Not Available [facility] 12/16/2013 14:04:09 varicella 0 completed Not Available [facility] 12/16/2013 14:04:09 Td (adult), 2 Lf tetanus toxoid, preservative free, adsorbed 3 completed Rex Alejandre MD [address], [address], [facility] 11/30/2022 07:53:52 Past Encounters Encounter ID Performer Location Encounter Start Date Encounter Closed Date Diagnosis/Indication Diagnosis SNOMED-CT Code Diagnosis ICD10 Code [id number] autoEComm erce [address] [facility] [facility] [place] [address] 11/20/2006 00:00:00 [id number] autoEComm erce [address] [facility] [facility] [place] [address] 01/30/2007 00:00:00 [id number] autoEComm erce [address] [facility] [facility] [place] [address] 06/13/2006 00:00:00 [id number] autoEComm erce [address] [facility] [place] [address] 05/23/2007 00:00:00 [id number] autoEComm erce [address] [facility] [facility] [place] [address] 09/06/2007 00:00:00 [id number] autoEComm erce [address] [facility] [place] [address] 08/26/2008 00:00:00 [id number] autoEComm erce [address] [facility] [place] [address] 09/02/2008 00:00:00 [id number] auto[facility]Comm erce [address] [place] [address] 01/11/2009 00:00:00 [id number] autoEComm erce [address] [place] [address] 10/21/2009 00:00:00 [id number] autoEComm erce [address] [place] [address] 02/24/2010 00:00:00 [id number] autoEComm erce [address] [facility] [address] [place] [address] 03/31/2010 00:00:00 [id number] autoEComm erce [address] [facility] [address] [place] [address] 05/18/2010 00:00:00 [id number] autoEComm erce [address] [facility] [place] [address] 10/27/2010 00:00:00 [id number] autoEComm erce [address] [facility] [place] [address] 03/15/2011 00:00:00 [id number] autoEComm erce [address] [facility] [place] [address] 05/17/2011 00:00:00 [id number] autoEComm erce [address] [facility] [place] [address] 08/22/2011 00:00:00 [id number] autoEComm erce [address] [facility] [place] [address] 09/21/2011 00:00:00 [id number] autoEComm erce [address] [facility] [address] [place] [address] 11/09/2011 00:00:00 [id number] autoEComm erce [address] [facility] [place] [address] 02/21/2012 00:00:00 [id number] autoEComm erce [address] [facility] [place] [address] 07/01/2012 00:00:00 [id number] autoEComm erce [address] [place] [address] 10/05/2012 00:00:00 [id number] autoEComm erce [address] [facility] [place] [address] 10/25/2012 00:00:00 [id number] autoEComm erce [address] [facility] [place] [address] 11/11/2012 00:00:00 [id number] autoEComm erce [address] [facility] [place] [address] 11/14/2012 00:00:00 [id number] autoEComm erce [address] [facility] [place] [address] 02/26/2013 00:00:00 [id number] autoEComm erce [address] [facility] [place] [address] 11/27/2013 00:00:00 [id number] Main Office [address] [place], [place] [address] 03/05/2014 11:35:43 03/05/2014 11:56:42 Acute upper respiratory infection 54138028 [id number] Selena Cabezas Main Office [address] [place], [place] [address] 03/10/2014 13:26:09 03/10/2014 14:18:26 Acute sinusitis 59323555 [id number] Rex Alejandre MD Main Office [address] [place], [place] [address] 05/13/2014 16:07:04 05/13/2014 16:50:19 Headache 30700712 Abdominal pain 63048899 [id number] Bishnu Fuller Main Office [address] [place], [place] [address] 12/03/2014 15:30:01 12/03/2014 16:08:38 Well child 120140889 Attention deficit hyperactivity disorder 131369852 Allergic rhinitis 912193 04 [id number] Bishnu Fuller Main Office [address] [place] [address] 03/18/2015 13:18:22 03/18/2015 14:05:07 Acute pharyngitis 305827693 J02.9 [id number] Rex Alejandre MD Main Office [address] [address] [place] [address] 07/27/2015 11:25:30 07/27/2015 11:58:41 Abdominal pain 73562887 R10.9 Acute sinusitis 91577407 J01.90 [id number] Rex Alejandre MD Main Office [address] [address] [place] [address] 12/09/2015 15:42:41 12/09/2015 16:38:40 Well child 313878969 Z00.129 Problemati c behavior in children 860437120 F91.1 [id number] Rex Alejandre MD Main Office [address] [address] [place] [address] 03/06/2016 15:19:43 03/06/2016 16:15:46 Upper abdominal pain 24057119 R10.10 [id number] Patrice López MD Main Office [address] [address] [place] [address] 03/11/2016 08:14:21 03/11/2016 09:11:55 Abdominal pain 96222332 R10.9 [id number] Rex Alejandre MD Main Office [address] [address] [place] [address] 03/22/2016 14:47:59 03/22/2016 16:36:32 Abdominal pain 47197264 R10.9 [id number] Rex Alejandre MD Main Office [address] [address] [place] [address] 09/21/2016 16:14:39 09/21/2016 16:44:40 Scoliosis of thoracic spine 962139887 M41.34 [id number] Rex Alejandre MD Main Office [address] [address] [place] [address] 12/13/2016 14:26:26 12/13/2016 15:22:47 Well child 900831274 Z00.129 Eating disorder 57254582 F50.9 [id number] Rex Alejandre MD Main Office [address] [address] [place] [address] 03/14/2017 14:12:20 03/14/2017 15:02:35 Needs influenza immunization 055570522 Z23 Eating disorder 92820719 F50.9 Anxiety 07591468 F41.9 [id number] Rex Alejandre MD Main Office [address] [address] [place] [address] 06/14/2017 14:29:05 06/14/2017 15:12:14 Eating disorder 41917519 F50.9 [id number] Rex Alejandre MD Main Office [address] [address] [place] [address] 09/10/2017 14:47:44 09/10/2017 15:25:52 Eating disorder 84979046 F50.9 [id number] Rex Alejandre MD Main Office [address] [address] [place] [address] 12/17/2017 13:54:48 12/17/2017 14:53:26 Requires a meningitis vaccination 243024247 Z23 Well child 863933627 Z00 .129 Dysuria 16565498 R30.0 [id number] Rex Alejandre MD Main Office [address] [address] [place] [address] 12/19/2018 13:42:51 12/19/2018 14:47:24 Well child 705120370 Z00.129 Tenosynovi tis of right radial styloid 3286700018 [id number] M65.4 [id number] Sheeba barroso MA Main Office [address] [address] [place] [address] 02/26/2020 14:08:07 02/26/2020 15:09:30 Adult health examination 395748340 Z00.00 Mixed anxi ety and depressive disorder 236754467 F41.8 Needs infl uenza immunization 905937618 Z23 [id number] Patrice López MD [facility] [address] [address] [place] [address] 04/30/2020 11:35:48 05/04/2020 11:18:24 Pain of left eye 9744531574 04457 H57.12 Dacrocytosis 891446074 R 71.8 [id number] Delores Whitehead Main Office [address] [address] [place] [address] 03/29/2021 10:54:59 03/29/2021 12:26:59 Adult health examination 597013790 Z00.00 Attention deficit hyperactivity disorder 449552769 F90.2 Eating disorder 11085522 F50.9 Generalize d anxiety disorder 57836720 F41.1 Abscess 784624696 L02.91 [id number] Rex Alejandre MD Main Office [address] [address] [place] [address] 09/28/2021 11:29:57 09/28/2021 12:21:31 Generalized anxiety disorder 19290817 F41.1 [id number] Rex Alejandre MD [facility] [address] [address] [place] [address] 10/27/2021 08:26:39 11/01/2021 15:39:06 Generalized anxiety disorder 80434858 F41.1 [id number] Rex Alejandre MD Main Office [address] [place] [address] 11/28/2022 15:06:12 11/28/2022 16:13:57 Adult health examination 672734679 Z00.00 Requires a tetanus booster 712289784 Z23 History of SARS-CoV-2 29 11435890 85093778 Z86.16 Attention deficit hyperactivity disorder, combined type 41272063 F90.2 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 Generalize d anxiety disorder 44712278 F41.1 Abnormal behavior 916538 06 R46.2 Health Concerns Section Related Observation LastModified by Organization Detai ls LastModified Time None Recorded Concern Status LastModified by Organization Details LastModified Time None Recorded Advance Directives Directive N: Payers Encounter Date Sequence Insurance Name Policy Number Policy Phipps Covered Member ID Phipps Member ID Guarantor Name 04/30/2020 1 [facility] PLAN (MEDICAID HMO) [id number] Sue Marie [id number] Sue Lafountain 04/30/2020 2 [place] Sue Lafountain [id number] Sue Lafountain 03/29/2021 1 [facility] PLAN (MEDICAID HMO) [id number] Sue Lafountain [id number] Sue Lafountain 03/29/2021 2 [place] Sue Lafountain [id number] Sue Lafountain 09/28/2021 1 [facility] PLAN (MEDICAID HMO) [id number] Sue Lafountain [id number] Sue Lafountain 09/28/2021 2 [place] Sue Lafountain [id number] Sue Lafountain 10/27/2021 1 [facility] PLAN (MEDICAID HMO) [id number] Sue Lafountain [id number] Sue Lafountain 10/27/2021 2 [place] Sue Lafountain [id number] Sue Lafountain 11/28/2022 1 [facility] PLAN (MEDICAID HMO) [id number] Sue Lafountain [id number] Sue Lafountain 11/28/2022 2 [place] Sue Lafountain [id number] Sue Lafountain Notes Date Note Type Note Provider Name and Address Organization Details Recorded Time 04/30/2020 text/html Video visit tessie calvin COVID-19 crisis. Noted to have symptoms of eye discomfort on and off for 2-3 weeks. Has not sought care previously. denies visual changes or photophobia. States that she has had sensation of burning pain bilaterally that is generally not associated with eye discharge or excessive tearing. No recent trauma. NO prior inflammatory disease. Reports swelling around medial aspect of lower lid and comes and goes. Some tenderness in area of nasolacrimal duct. Patrice López MD [address] [address], [place], [address], [facility] 05/02/2020 15:24:33 03/29/2021 text/html Generic HPI TemplateReported bypatient.Notes:Presen ts for PE.concerns:- She has a cat that helps with her anxiety, good sized. has a vet and has been unable to get him recognized as a therapy pet. is unsure of the right steps to go through etc.She used to have a therapist, none right now.Not on any meds, has been on multiple meds without relief-has a bump in her right axilla, has not been shaving- 1 month, started 2 days ago. painful, ? cyst. her sister gets frequent staph, they use same soaps and she is worried.- Had psych eval last year, does not think it was accurate, was seen for 1 hour. Clinical psychologist. 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 She did have a psychiatrist- when she was younger.- has a weight chart. Either gaining too much or losing too much. she is trying to maintain, would like to be 105. Does not get hungry often, has appetite but not at the right times. hx anorexia. tries to eat normal portions at least once a day. she does snack, eats a lot of junk food. no exercise. Last year was 116, 103 today. Does feel she is past the eating disorder. Gets hungry before bed or right when she wakes in the morning or not at all. Usually eats breakfast. 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 She was seen for a med psych consult at [facility] who recommended sertraline with an escalating dose and gabapentin but she has tried sertraline in the past and doesn't want to take it again because she felt that it didn't help. Rex Alejandre MD [address] [address], [place], [address], [facility] [place] 09/28/2021 19:21:25 10/27/2021 text/html Anxiety/Depressi onRepo rted bypatient.Quality:symp toms improved Severity:interference with household activities Context:major life stressorsNotes:She did not want to take an SSRI but has tried gabapentin 100 mg. She was afraid to take it regularly because she looked it up on the Internet and found something that said it was addictive. She has instead been taking it prn 200 mg when she feels that she needs (like when going out to a concert) and feels that it helps some. She has not been looking for another psych provider. She saw someone in the past a few times but stopped because she felt that it wasn't helping. Rex Alejandre MD [address] [address], [place], [phone], [facility] [place] 10/27/2021 18:08:34 11/28/2022 text/html Generic HPI TemplateReported bypatient.Notes:She has been doing better recently. 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 She would like an evaluation and document this if it is the case. Both her parents are schizophrenic. Rex Alejandre MD [address] [address], [place], [phone], [facility] [place] 11/30/2022 08:03:55 OBGyn Episode No OBEpisode recorded.
== END 2024-06-03 08:14 | disposition left against medical advice (07) ==
PROVIDERS: Emergency Provider Emergency Medicine Emergency Medical Services
DX: J02.9 Acute pharyngitis, unspecified (principal); Z03.818 Encounter for observation for suspected exposure to other biological agents ruled out
CPT/HCPCS: 0241U; 36415; 80053; 84702; 85025; 86308; 87468; 87469; 87478; 87484; 87651; 87798; 96361; 96374; 99281; 99284; J1885; J8540

== ENCOUNTER 2024-06-03 18:17 | Emergency (ER) | payer OTHER, SELFPAY ==
[2024-06-03 18:29] VITALS: BP 100/44; PULSE 112; RESP 18; TEMP 37.6; O2SAT 95; BMI 16.7
--- NOTE | 2024-06-03 18:29 | ED_ITS ---
HPI - General Adult General Chief complaint: General Medical Stated complaint: Fever/Vomiting Time Seen by Provider: 06/03/24 21:55 Source: patient Limitations: no limitations History of Present Illness ED Provider: Genet Carrillo PA-C HPI narrative: 24-year-old female presents with fever since earlier today. Associated nausea, vomiting, generalized body aches and sore throat. Patient also states she has ?bug bites on her right leg?. Denies cough and cold symptoms, diarrhea or abdominal pain. Denies risk for STD. Denies related symptoms including pelvic pain or vaginal discharge. Related Data Previous Rx's ?Medication ?Instructions ?Recorded cephalexin 500 mg tablet 500 mg PO Q6H 10 days #40 tabs 12/30/21 doxycycline hyclate 100 mg capsule 100 mg PO BID 10 days #20 caps 12/30/21 fluconazole 150 mg tablet 150 mg PO Q3D 2 doses #2 tabs 12/31/21 (Diflucan) azithromycin 250 mg tablet See Rx Instructions PO .COMPLEX 04/11/22 upper resp infection #6 tabs ibuprofen 400 mg tablet 400 mg PO Q6H PRN pain #20 tabs 04/11/22 Allergies Allergy/AdvReac Type Severity Reaction Status Date / Time amoxicillin [AMOXICILLIN] Allergy Intermediate N/V Verified 06/03/24 18:33 Penicillins [PENICILLINS] Allergy Unknown UNKNOWN Verified 06/03/24 18:33 Review of Systems 2 Review of Systems: Yes all other systems are reviewed and are negative Constitutional: Constitutional: Denies fatigue, Reports fever(s) and Reports malaise ENT: Reports sore throat Cardiovascular: Cardiovascular: Denies chest pain and Denies dyspnea Respiratory: Respiratory: Denies cough and Denies dyspnea Gastrointestinal: Gastrointestinal: Denies abdominal pain, Denies diarrhea, Reports nausea and Reports vomiting Genitourinary: Genitourinary: Denies dysuria, Denies pelvic pain, Denies vaginal discharge and Denies vaginal odor Endocrine: Endocrine: Denies fatigue PMFSH Past Medical History Attestation statement: The following information was validated with the patient. Social History Social History Alcohol intake: current Alcohol intake frequency: a few times a month Smoked in Last 30 Days: No Use of substances other than those prescribed or required for medical reasons: No Advance Directives: No Advance Directives Information Provided: No Do you have a plan to hurt others: No Plan Patient : No Physical Exam ED Vital Signs: Vital Signs - 24 hr 06/03/24 18:29 06/03/24 21:33 06/03/24 21:33 Temperature 99.7 F 98.9 F Pulse Rate 112 H 112 H Pulse Rate [Monitor] 112 H Respiratory Rate 18 18 Blood Pressure 100/44 L 110/67 Pulse Oximetry 95 100 Oxygen Delivery Method Room Air Room Air 06/03/24 21:37 06/03/24 21:37 06/03/24 21:37 Temperature Pulse Rate 107 H 116 H 126 H Pulse Rate [Monitor] Respiratory Rate Blood Pressure 110/67 112/68 112/68 Pulse Oximetry Oxygen Delivery Method BMI result Body Mass Index 16.7 Const Other: Alert well-appearing Orientation/consciousness: patient oriented x3 HENMT Other: Oropharynx mildly erythematous without exudate, uvula midline, no trismus no drooling no sublingual fluctuance Neck Other: No cervical lymphadenopathy Resp Effort & Inspection: normal respiratory effort Cardio Other: Normal peripheral perfusion GI Other: Abdomen is soft nondistended nontender no guarding Skin Other: Warm dry no rash Neuro General: patient oriented x3, no focal motor deficits and CN's II-XI intact bilaterally Psych Other: Calm cooperative Course Course Course Narrative: This is a rapid medical exam performed by Roz Beyer NP: Additional HPI, ROS, PE not included below will be deferred to primary provider. Patient is a 24-year-old female presenting with complaint sore throat, dizziness, fatigue, coughing up sputum, joint pain/body aches. Seen here early this morning for same, tested negative for strep/flu/covid/rsv, but left from the waiting room. Boyfriend and his family recently sick with similar symptoms. Was also bit by a spider a few days ago. Plan: basic labs Medications Administered Discontinued Medications Generic Name Dose Route Start Last Admin Trade Name Freq PRN Reason Stop Dose Admin Al Hydroxide/Mg Hydroxide 30 ml 06/03/24 21:58 06/03/24 22:13 Magnesium Hydrox/Alum Hydrox 30 Ml Oral.Susp PO 06/03/24 21:59 30 ml ONCE ONE Administration Dexamethasone 10 mg 06/03/24 23:42 06/04/24 00:16 Dexamethasone 2 Mg Tablet PO 06/03/24 23:43 10 mg ONCE ONE Administration Sodium Chloride 1,000 mls @ 999 mls/hr 06/03/24 22:00 06/03/24 23:15 Ns IV 06/03/24 23:00 Infused .Q1H1M GILMER Infusion Ketorolac Tromethamine 15 mg 06/03/24 21:55 06/03/24 22:13 Ketorolac Tromethamine 15 Mg/Ml Vial IVPUSH 06/03/24 21:56 15 mg ONCE ONE Administration Lidocaine HCl 15 ml 06/03/24 21:58 06/03/24 22:13 Lidocaine Hcl Viscous 2 % 15 Ml Solution MUCOUS MEM 06/03/24 21:59 15 ml ONCE ONE Administration Medical Decision Making Medical Decision Making MDM Narrative: 24-year-old female presents with fever since earlier today. Associated nausea, vomiting, generalized body aches and sore throat. Patient also states she has ?bug bites on her right leg?. Denies cough and cold symptoms, diarrhea or abdominal pain. Denies risk for STD. Denies related symptoms including pelvic pain or vaginal discharge. No relevant chronic issues History: Per patient I have considered the following differential diagnoses: Strep pharyngitis, mononucleosis, gonococcal pharyngitis, RPA, GEOTHERMAL HVAC TECHNICIAN, viral gastroenteritis Plan: Patient was seen at triage, a mono spot and tick panel were ordered. I am adding on a strep panel, viral panel. We will give symptomatic treatment for her nausea vomiting. Her exam was benign, she does not warrant imaging. There was no evidence of RPA or GEOTHERMAL HVAC TECHNICIAN based on my exam. She denies risk for STD, she is asymptomatic, nothing to suggest a gonococcal pharyngitis. I have independently reviewed the following tests: Labs: No leukocytosis, not anemic, no electrolyte abnormality not , viral panel negative strep screen negative, Monospot negative, tick panel pending Lab Data 06/03/24 18:41 06/03/24 18:41 Labs: Lab Results 06/03/24 06/03/24 Range/Units 18:41 22:00 WBC 7.7 (4.8-10.8) X10*3/uL RBC 4.09 L (4.20-5.50) X10*6/uL Hgb 12.4 (12.0-16.0) g/dl Hct 36.8 L (37.0-47.0) % MCV 90.0 (80.0-98.0) fL MCH 30.3 (27.0-33.0) pg MCHC 33.7 (31.0-35.0) g/dl RDW 12.3 (11.0-16.0) % Plt Count 151 L D (160-400) X10*3/uL MPV 10.3 (9.4-12.3) fL Immature Gran % (Auto) 0.4 (0.0-0.4) % Neut % (Auto) 89.9 H (45-73) % Lymph % (Auto) 6.8 L (20-40) % [place] % (Auto) 2.1 (2-11) % Eos % (Auto) 0.0 (0-4) % Baso % (Auto) 0.8 (0-2) % Lymph # (Auto) 0.5 L (1.2-4.9) X10*3/uL [place] # (Auto) 0.2 (0.1-1.2) X10*3/uL Eos # (Auto) 0.0 (0.0-0.4) X10*3/uL Baso # (Auto) 0.1 (0.0-0.2) X10*3/uL Abs Immat Gran (auto) 0.03 (0.00-0.03) X10*3/uL Absolute Neuts (auto) 7.0 (2.0-8.3) x10*3/uL Absolute Nucleated RBC 0.000 (0.0-0.012) X10*3/uL Nucleated RBC % (auto) 0.0 (0.0-0.2) /100WBC Sodium 139 (135-145) mmol/L Potassium 3.5 (3.3-5.1) mmol/L Chloride 105 (96-108) mmol/L Carbon Dioxide 23 (22-29) mmol/L Anion Gap 15 (12-20) BUN 10 (9-16) mg/dL Creatinine 0.65 (0.5-1.4) mg/dL Estim Creat Clear Calc 102.9 Estimated GFR > 60 Random Glucose 156 H (60-115) mg/dL Calcium 8.5 D (8.4-10.2) mg/dL Total Bilirubin 1.0 (0.0-1.0) mg/dL AST 25 (5-31) U/L ALT 25 (0-31) U/L Alkaline Phosphatase 41 (39-117) U/L Total Protein 6.7 (6.5-8.0) g/dL Albumin 4.0 (3.5-5.0) g/dL Beta HCG, Quant < 2 mIU/mL Monoscreen Negative (Negative) Influenza Type A (PCR) NEGATIVE (Negative) Influenza Type B (PCR) NEGATIVE (Negative) RSV RNA Qual (PCR) NEGATIVE (Negative) SARS-CoV-2 RNA (RT-PCR) NEGATIVE (Negative) S. pyogenes GrpA MALINA Negative (Negative) Discharge Plan Discharge Clinical Impression: Acute viral pharyngitis Patient Disposition: Home, Self-Care Instructions: Pharyngitis (ED), Viral Syndrome (ED) Additional Instructions: You were screened for RSV, influenza a and B and COVID. The viral panel was negative. We retested you for strep throat it was negative you also were tested for mononucleosis, that was negative. There are numerous viruses circulating within the community, that is the likely cause of your sore throat. See home care instructions. You were given a 1 time dose of a steroid called Decadron, this will help with the inflammation of your throat. Warm salt water gargles we will help your pain as well. Follow up with your primary care provider. You do have 1 lab test pending, a tick panel. You will be contacted with the results if you are positive for any organism. Prescriptions: No Action doxycycline hyclate 100 mg capsule 100 mg PO BID 10 Days Qty: 20 0RF cephalexin 500 mg tablet 500 mg PO Q6H 10 Days Qty: 40 0RF fluconazole [Diflucan] 150 mg tablet 150 mg PO Q3D Qty: 2 0RF azithromycin 250 mg tablet See Rx Instructions .ROUTE .COMPLEX Qty: 6 0RF Rx Instructions: take 500 mg today (day 1), then 250 mg for 4 days (days 2-5) ibuprofen 400 mg tablet 400 mg PO Q6H PRN (Reason: pain) Qty: 20 0RF Interventions: ED Discharge Assessment Last Done: 06/04/24 00:24 Discharge Date/Time: 06/04/24 00:24 Print Language: Syriac
[2024-06-03 18:46] LABS: MANUAL DIFF FLAG NO
[2024-06-03 18:49] LABS: Basophils Absolute Auto 0.1 X10*3/uL (0.0-0.2); Basophils Percent Auto 0.8 % (0-2); Hematocrit 36.8 % (37.0-47.0); Hemoglobin 12.4 g/dl (12.0-16.0); Imm Gran Abs Auto 0.03 X10*3/uL (0.00-0.03); Imm Gran Pct Auto 0.4 % (0.0-0.4); Lymphocytes Absolute Auto 0.5 X10*3/uL (1.2-4.9); Lymphocytes Percent Auto 6.8 % (20-40); Mean Corpuscular HGB Conc 33.7 g/dl (31.0-35.0); Mean Corpuscular Hemoglobin 30.3 pg (27.0-33.0); Mean Platelet Volume 10.3 fL (9.4-12.3); Monocytes Absolute Auto 0.2 X10*3/uL (0.1-1.2); Monocytes Percent Auto 2.1 % (2-11); Neutrophils Percent Auto 89.9 % (45-73); Platelet Count 151 X10*3/uL (160-400); Red Blood Count 4.09 X10*6/uL (4.20-5.50); Red Cell Distribution Width 12.3 % (11.0-16.0); White Blood Count 7.7 X10*3/uL (4.8-10.8)
[2024-06-03 19:25] LABS: Alanine Aminotransferase 25 U/L (0-31); Alkaline Phosphatase 41 U/L (39-117); Anion Gap 15 (12-20); Aspartate Amino Transferase 25 U/L (5-31); Blood Urea Nitrogen 10 mg/dL (9-16); Calcium 8.5 mg/dL (8.4-10.2); Carbon Dioxide 23 mmol/L (22-29); Chloride 105 mmol/L (96-108); Creatinine Clr Calc Pharmacy 102.9; Estimated Glomerular Filt Rate > 60; Glucose Random 156 mg/dL (60-115); Potassium 3.5 mmol/L (3.3-5.1); Sodium 139 mmol/L (135-145); Total Protein 6.7 g/dL (6.5-8.0)
[2024-06-03 19:27] LABS: HCG Quantitative < 2 mIU/mL
[2024-06-03 19:44] LABS: Monotest Negative (Negative)
[2024-06-03 21:33] VITALS: BP 110/67; PULSE 112; RESP 18; TEMP 37.2; O2SAT 100
[2024-06-03 21:37] VITALS: BP 110/67; BP 112/68; PULSE 107; PULSE 116; PULSE 126
[2024-06-03] MEDS: 0.9 % Sodium Chloride 1,000 ML 999 ML IV (22:07)
[2024-06-03] MEDS: Lidocaine HCl Viscous 2 % 15 ML SOLUTION MUCOUS MEM (22:13)
[2024-06-03] MEDS: Ketorolac Tromethamine 15 MG/ML VIAL IVPUSH (22:13)
[2024-06-03] MEDS: Magnesium Hydrox/Alum Hydrox 30 ML ORAL.SUSP PO (22:13)
[2024-06-03 22:15] LABS: IDNOW Serial# 6674DD1D; Strep A Nucleic Acid Negative (Negative)
[2024-06-03 22:45] LABS: Influenza A PCR NEGATIVE (Negative); Influenza B PCR NEGATIVE (Negative); Resp Syncy Virus RNA Qual PCR NEGATIVE (Negative); SARS COV2 PCR INHOUSE NEGATIVE (Negative)
[2024-06-03 23:51] VITALS: BP 117/64; PULSE 90; RESP 18; TEMP 37.1; O2SAT 99
[2024-06-04] MEDS: dexAMETHasone 2 MG TABLET 10 MG PO (00:16)
[2024-06-04 00:24] VITALS: BP 117/64; PULSE 90; RESP 18; TEMP 37.1; O2SAT 99
[2024-06-06 11:43] LABS: A. Phagocytphilium DNA,RT-PCR NOT DETECTED (NOT DETECTED); Babesia Microti DNA, RT-PCR NOT DETECTED (NOT DETECTED); Borrelia Miyamotoi,DNA RT-PCR NOT DETECTED (NOT DETECTED); E.Chaffeensis DNA RT-PCR NOT DETECTED (NOT DETECTED); Lyme(Borrelia ssp)DNA RT-PCR NOT DETECTED (NOT DETECTED)
== END 2024-06-04 00:24 | disposition home or self-care (01) ==
PROVIDERS: Physician Assistant Medical; Registered Nurse Emergency; Emergency Provider Emergency Medicine Emergency Medical Services
DX: J02.8 Acute pharyngitis due to other specified organisms (principal); R50.9 Fever, unspecified; R11.2 Nausea with vomiting, unspecified; M79.10 Myalgia, unspecified site; Z03.818 Encounter for observation for suspected exposure to other biological agents ruled out; Z79.899 Other long term (current) drug therapy
CPT/HCPCS: 0241U; 36415; 80053; 84702; 85025; 86308; 87468; 87469; 87478; 87484; 87651; 87798; 96361; 96374; 99284; 99285; J1885; J8540

== ENCOUNTER 2025-03-30 18:58 | Emergency (ER) | payer OTHER, SELFPAY ==
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
[2025-03-30 19:38] VITALS: BP 124/64; PULSE 89; RESP 16; TEMP 36.9; O2SAT 97; BMI 20.4
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
--- OUTSIDE RECORDS SUMMARY | 2025-03-30 20:42 | XMS_ITS | Data Portability ---
Author Organization [facility], Main Office Address [address] [facility] [address] [place] [address] Care Team Providers Care Vice President Education Name Role Phone REX ALEJANDRE Primary Care Provider LISHA HANDLEY Referring Provider RUTHIE HELTON Referring Provider KUMAR MOODY Referring Provider [phone] HALINA BAEZA Referring Provider [facility] (ADULT INTAKE) Clini alex Psychologist Assessment [...] pain, I recommended that she see an eye-care transitions manager. She reports swelling and pain around the nasolacrimal duct, so I offered her abx for possible dacrocystitis, which she can start if she is not able to see the victims advocate clerk/specialist today (Sunday afternoon). christiano Not available 05/02/2020 15:24:12 10/27/2021 10/27/2021 This service was provided using telemedicine. Patient consented to telephone visit Patient was located in the [facility]. Provider was located in the office. No other persons participated in the telemedicine visit except for the patient unless otherwise indicated here. Total time of visit was 11 minutes. juan Not available 10/27/2021 17:51:17 Plan of Treatment Reminders Order Date Submit Date Provider Last Modified By Organization Details Last Modified Time Details Appointments None recorded. Lab None recorded. Referral psychiatris t referral - Medication consultatio n with Narciso Cee MD [facility] [address] [facility], [address], [address], 11:08:39 technical inspector referral 2019 020 maria [address] rosario [place], [address] [place], [address], 14:16:54 Procedures None recorded. Surgeries None recorded. Imaging None recorded. Medication Orders gabapentin 100 mg capsule 2022 023 [id number], [address] [place], [address], 07:55:53 gabapentin 100 mg capsule 2021 022 [facility] [id number], [address] [place], [address], 03:33:50 cefuroxime axetil 500 mg tablet 2019 020 [email or web address] 3 [id number], [address] [place], [place], [id number], 11:14:14 Patient TargetsNo targets recorded. Patient Instructions Encounter Date Encounter Id Patient Instructions Last Modified By Organization Details Last Modified Time 03/29/2021 [id number] skin abscess: care instructions [email or web address] Not available 03/29/2021 11:53:58 call or return for worsening or concerns. 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 Alaina wang [facility] 7 16:18:02 Abdomina l pain 73853755 Completed 09/21/2016 Alaina wang [facility] 7 16:17:47 Acute pharyngi tis 035457626 Completed 09/21/2016 Alaina wang [facility] 7 16:17:51 Psychiat kerline symptom 54858693 Active She has behavior concerns and is followed by psych. Both parents have schizoph rossi and [facility] has custody. 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 Active Rex salmon MD [address], [place], [address], [facility] 6 17:41:04 Varicell a vaccinat ion Completed 200912/23/2013 RECORDED 10/22/19 10 2:51PM BY REX POTTER MD, WELL CHILD VISITS Rex salmon MD [address], [place], [address], [facility] 6 17:33:29 Varicell a vaccinat ion Completed 200901/12/2014 RECORDED 10/22/19 10 2:51PM BY REX POTTER MD, WELL CHILD VISITS Rex salmon MD [address], [place], [address], [facility] 6 17:33:29 Acute pharyngi tis 281298477 Completed 201112/23/2013 RECORDED 02/21/20 12 11:42AM BY NAI SERRA MA, ANNOTATI ON/ADDEN DUM Alaina Suárez MA [facility] 7 16:17:51 Acute sinusiti s 20735515 Completed 201112/23/2013 RECORDED 02/21/20 12 11:42AM BY NAI SERRA MA, ANNOTATI ON/ADDEN DUM Alaina Suárez MA [facility] 7 16:17:44 Conjunct ivitis 5488777 Completed 201112/23/2013 RECORDED 02/21/20 12 11:42AM BY NAI SERRA MA, ANNOTATI ON/ADDEN DUM Rex salmon MD [address] [facility] [address], [place], [address], [facility] 6 17:33:29 Cough 98517028 Completed 201112/23/2013 RECORDED 02/21/20 12 11:42AM BY NAI SERRA MA, ANNOTATI ON/ADDEN DUM Rex salmon MD [address], [place], [address], [facility] 6 17:33:29 Diarrhea 14688828 Completed 201112/23/2013 RECORDED 02/21/20 12 11:42AM BY NAI SERRA MA, FIDEL ON/WENDY salmon MD [address] [address], [place], [address], [facility] 6 17:33:29 Epistaxi s Completed 201112/23/2013 IMPRESSI ON: PROBABLY D/T DRY NASAL MUCOSA, RECOMMEN D NASAL MOISTURI ZATION; RECORDED 02/21/20 12 11:42AM BY NAI SERRA MA, FIDEL ON/WENYD salmon MD [address] [address], [place], [address], [facility] 6 17:33:29 Gastroes ophageal reflux disease 568891974 Completed 201112/23/2013 RECORDED 02/21/20 12 11:42AM BY NAI SERRA MA, FIDEL ON/WENDY salmon MD [address] [address], [place], [address], [facility] 6 17:33:29 Headache 72176066 Completed 201112/23/2013 RECORDED 02/21/20 12 11:42AM BY NAI SERRA MA, ANNOTATI ON/WENDY Suárez MA [facility], [facility] 7 16:18:02 Infectiv e otitis externa 83794776 Completed 201112/23/2013 RECORDED 02/21/20 12 11:42AM BY NAI SERRA MA, FIDEL ON/WENDY salmon MD [address] [facility] [address], [place], [address], [facility] 6 17:33:29 Eruption 971063366 Completed 201112/23/2013 RECORDED 02/21/20 12 11:42AM BY NAI SERRA MA, FIDEL ON/ADDKRIS salmon MD [address], [place], [address], [facility] 6 17:33:29 Sprain of knee and leg Completed 201112/23/2013 IMPRESSI ON: A HANDOUT WAS GIVEN FOR THIS.; RECORDED 02/21/20 12 11:42AM BY NAI SERRA MA, FIDEL ON/WENDY salmon MD [address], [place], [address], [facility] 6 17:33:29 Function al visual loss 665584263 Completed 201112/23/2013 RECORDED 02/21/20 12 11:42AM BY NAI SERRA MA, ANNOTATI ON/WENDY salmon MD [address] [facility] [address], [place], [address], [facility] 6 17:33:29 Vomiting 894718246 Completed 201112/23/2013 RECORDED 02/21/20 12 11:42AM BY NAI SERRA MA, FIDEL ON/WENDY salmon MD [address] [facility] [address], [place], [address], [facility] 6 17:33:29 Acute pharyngi tis 341510463 Completed 201101/12/2014 RECORDED 02/21/20 12 11:42AM BY NAI SERRA MA, [facility]ATI ON/[facility] 7 16:17:51 Acute sinusiti s 75708660 Completed 201101/12/2014 RECORDED 02/21/20 12 11:42AM BY NAI SERRA MA, ANNOTATI ON/WENDY wang [facility] 7 16:17:44 Conjunct ivitis 3958563 Completed 201101/12/2014 RECORDED 02/21/20 12 11:42AM BY NAI SERRA MA, FIDEL ON/WENDY salmon MD [address] [facility] [address], [place], [address], [facility] 6 17:33:29 Cough 74529197 Completed 201101/12/2014 RECORDED 02/21/20 12 11:42AM BY NAI SERRA MA, FIDEL ON/WENDY salmon MD [address] [facility] [address], [place], [address], [facility] 6 17:33:29 Diarrhea 14331082 Completed 201101/12/2014 RECORDED 02/21/20 12 11:42AM BY NAI SERRA MA, FIDEL ON/WENDY salmon MD [address] [facility] [address], [place], [address], [facility] 6 17:33:29 Epistaxi s Completed 201101/12/2014 IMPRESSI ON: PROBABLY D/T DRY NASAL MUCOSA, RECOMMEN D NASAL MOISTURI ZATION; RECORDED 02/21/20 12 11:42AM BY NAI SERRA MA, ANNOTATI ON/WENDY salmon MD [address] [facility] [address], [place], [address], [facility] 6 17:33:29 Gastroes ophageal reflux disease 959327752 Completed 201101/12/2014 RECORDED 02/21/20 12 11:42AM BY NAI SERRA MA, FIDEL GUEVARA/WENDY salmon MD [address] [facility] [address], [place], [address], [facility] 6 17:33:29 Headache 01645897 Completed 201101/12/2014 RECORDED 02/21/20 12 11:42AM BY NAI SERRA MA, FIDEL ON/ADDEN CARLO Suárez [facility] 7 16:18:02 Infectiv e otitis externa 95686540 Completed 201101/12/2014 RECORDED 02/21/20 12 11:42AM BY NAI SERRA MA, FIDEL ON/ADDEN CARLO salmon MD [address] [facility] [address], [place], [address], [facility] 6 17:33:29 Eruption 042205845 Completed 201101/12/2014 RECORDED 02/21/20 12 11:42AM BY NAI SERRA MA, FIDEL GUEVARA/WENDY salmon MD [address] [facility] [address], [place], [address], [facility] 6 17:33:29 Well child 872155624 Completed 201101/12/2014 RECORDED 02/21/20 12 11:42AM BY NAI SERRA MA, FIDEL ON/WENDY salmon MD [address] [facility] [address], [place], [address], [facility] 6 17:33:29 Sprain of knee and leg Completed 201101/12/2014 IMPRESSI ON: A HANDOUT WAS GIVEN FOR THIS.; RECORDED 02/21/20 12 11:42AM BY NAI SERRA MA, ANNOTATI ON/WENDY salmon MD [address] [facility] [address], [place], [address], [facility] 6 17:33:29 Function al visual loss 397377724 Completed 201101/12/2014 RECORDED 02/21/20 12 11:42AM BY NAI SERRA MA, ANNOTATI ON/ADD DUM Rex salmon MD [address] [facility] [address], [place], [address], [facility] 6 17:33:29 Vomiting 341536254 Completed 201101/12/2014 RECORDED 02/21/20 12 11:42AM BY NAI SERRA MA, ANNOTATI ON/ADD DUM Rex salmon MD [address] [facility] [address], [place], [address], [facility] 6 17:33:29 Influenz a vaccine needed 32787431524 06 Completed 201212/23/2013 RECORDED 06/20/19 13 4:46PM BY SELENA HAMLIN I, NURSE VISIT Rex salmon MD [address] [facility] [address], [place], [address], [facility] 6 17:33:29 Influenz a vaccine needed 77328651457 06 Completed 201201/12/2014 RECORDED 06/20/19 13 4:46PM BY SELENA HAMLIN I, NURSE VISIT Rex salmon MD [address] [facility] [address], [place], [address], [facility] 6 17:33:29 Acute upper respirat ory infectio n 89002710 Completed 201212/23/2013 IMPRESSI ON: VIRAL. CALL IF WORSENIN G. WILL LAST 1-3 WEEKS. ADD AFRIN SINCE HAVING POSTNASA L DRIP. NO MORE THAN 4 DAYS. CONTINUE USING FLONASE; RECORDED 10/06/19 13 10:58AM BY FIDEL LORA ON/ADDEN DUM Alaina wang, [facility] 7 16:18:45 Noninfec tious gastroen teritis 07113637 Completed 201212/23/2013 IMPRESSI ON: AFEBRILE , NON-ACUT E ABDOMEN, ENCOURAG E CLEAR FLUIDS; RECORDED 10/06/19 13 10:58AM BY FIDEL LORA ON/WENDY salmon MD [address] [facility] [address], [place], [address], [facility] 6 17:33:29 Acute upper respirat ory infectio n 83559510 Completed 201201/12/2014 IMPRESSI ON: VIRAL. CALL IF WORSENIN G. WILL LAST 1-3 WEEKS. ADD AFRIN SINCE HAVING POSTNASA L DRIP. NO MORE THAN 4 DAYS. CONTINUE USING FLONASE; RECORDED 10/06/19 13 10:58AM BY FIDEL LORA ON/[facility]Y [facility], [facility] 7 16:18:45 Noninfec tious gastroen teritis 30824415 Completed 201201/12/2014 IMPRESSI ON: AFEBRILE , NON-ACUT E ABDOMEN, ENCOURAG E CLEAR FLUIDS; RECORDED 10/06/19 13 10:58AM BY FIDEL LORA/WENDY salmon MD [address] [facility] [address], [place], [address], [facility] 6 17:33:29 Insect bite to leg - nonvenom ous 909096338 Completed 201212/23/2013 IMPRESSI ON: PT SUCCESSF ULLY [...] 2:31PM BY FIDEL LORA/WENDY salmon MD [address] [facility] [address], [place], [address], [facility] 6 17:33:29 Insect bite to leg - nonvenom ous 618238209 Completed 201201/12/2014 IMPRESSI ON: PT SUCCESSF ULLY [...] RECORDED 10/26/19 13 2:31PM BY FIDEL LORA ON/ADDEN DUM Rex salmon MD [address] [address], [place], [address], [facility] 6 17:33:29 Pain of joint of wrist Completed 201212/23/2013 IMPRESSI ON: SUSPECT TENDONIT IS WRIST. SHE WILL TRY TAKING AN NSAID ALTHOUGH MAY NEED A LOT OF CONVINCI NG. F DOES NOT IMPROVE IN 4 DAYS WITH NSAID THEN DO X-RAY. IF PAIN PERSISTS WOULD DO HAND SURGEON REFERRAL . [employer]. NO COMPUTER . 1 WEEK OF SCHOOL WITH LIMITED WRITING. LETTER GIVEN; RECORDED 11/12/19 13 10:48AM BY CRUZ BAH MA, FIDEL ON/ADDEN DUM Rex salmon MD [address] [facility] [address], [place], [address], [facility] 6 17:33:29 Pain of joint of wrist Completed 201201/12/2014 IMPRESSI ON: SUSPECT TENDONIT IS WRIST. SHE WILL TRY TAKING AN NSAID ALTHOUGH MAY NEED A LOT OF CONVINCI NG. F DOES NOT IMPROVE IN 4 DAYS WITH NSAID THEN DO X-RAY. IF PAIN PERSISTS WOULD DO HAND SURGEON REFERRAL . REST HANDS. NO COMPUTER . 1 WEEK OF SCHOOL WITH LIMITED WRITING. LETTER GIVEN; RECORDED 11/12/19 13 10:48AM BY CRUZ BAH MA, FIDEL ON/ADDEN CARLO salmon MD [address] [facility] [address], [place], [address], [facility] 6 17:33:29 Administ ration of viral vaccine Completed 201212/23/2013 RECORDED 11/15/19 13 4:37PM BY REX POTTER MD, WELL CHILD VISITS Rex salmon MD [address] [facility] [address], [place], [address], [facility] 6 17:33:29 Intestin al infectio us disease 569949602 Completed 201212/23/2013 RECORDED 11/15/19 13 4:05PM BY FIDEL LORA ON/ADDEN CARLO salmon MD [address] [facility] [address], [place], [address], [facility] 6 17:33:29 Intestin al infectio us disease 094921914 Completed 201201/12/2014 RECORDED 11/15/19 13 4:05PM BY FIDEL LORA ON/WENDY salmon MD [address] [facility] [address], [place], [address], [facility] 6 17:33:29 Well child 636142468 Completed 201212/23/2013 RECORDED 02/27/20 13 11:49AM BY JULIAN BARRAGAN MA, FIEDL ON/YUANEN CARLO salmon MD [address] [facility] [address], [place], [address], [facility] 6 17:33:29 Administ ration of diphther ia, pertussi s, and tetanus vaccine Completed 201212/23/2013 RECORDED 02/27/20 13 11:49AM BY JULIAN BARRAGAN MA, ANNOTATI ON/ADDEN DUM Rex salmon MD [address] [facility] [address], [place], [address], [facility] 6 17:33:29 Acute upper respirat ory infectio n 43056739 Completed 201209/21/2016 RECORDED 02/27/20 13 12:15PM BY EDWARD MATHIAS PA-C, OFFICE VISIT Alaina wang, [facility] 7 16:18:45 Administ ration of diphther ia, pertussi s, and tetanus vaccine Completed 201201/12/2014 RECORDED 02/27/20 13 11:49AM BY JULIAN BARRAGAN MA, ANNOTATI ON/ADDEN DUM Rex salmon MD [address] [facility] [address], [place], [address], [facility] 6 17:33:29 Administ ration of viral vaccine Completed 201212/03/2014 RECORDED 05/19/20 13 4:02PM BY SELENA HAMLIN I, NURSE VISIT Rex salmon MD [address] [facility] [address], [place], [address], [facility] 6 17:33:29 Administ ration of viral vaccine Completed 201301/12/2014 RECORDED 11/07/19 14 1:30PM BY NAI SERRA MA, ANNOTATI ON/ADDEN DUM Rex salmon MD [address] [facility] [address], [place], [address], [facility] 6 17:33:29 Allergic rhinitis 59834758 Completed 201309/21/2016 RECORDED 11/28/19 14 4:01PM BY SELENA HAMLIN I, WELL CHILD VISITS [facility] 7 16:18:31 Failure to thrive 90264270 Completed 201309/21/2016 Alaina wang, [facility] 7 16:18:41 Well child 531611599 Completed 201312/03/2014 RECORDED 11/28/19 14 4:01PM BY SELENA HAMLIN I, WELL CHILD VISITS Rex salmon MD [address] [facility] [address], [place], [address], [facility] 6 17:33:29 Effusion of joint 441783793 Active 2013 Alaina wang, [facility] 7 16:18:01 Eating disorder 21808306 Active 2016 Followed by adolesce nt med for restrict edmund eating d/o. Rex salmon MD [address] [facility] [address], [place], [address], [facility] 7 09:15:43 Generali zed anxiety disorder 49566167 Active 2018 Seeing a therapis t. 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 No treatmen t necessar y. Rex salmon MD [address], [place], [address], [facility] 9 15:03:41 Dry eyes 636503407 Active 2019 Rex salmon MD [address], [place], [address], [facility] 0 15:03:12 Attentio n deficit hyperact ivity disorder , combined type 69552478 Active 2020 [facility] 1 14:44:23 History of SARS-CoV -2 [id number] 4867444 Active 2022 Rex salmon MD [address], [place], [address], [facility] 3 07:54:51 Problem Notes None recorded. Procedures Surgical History Date Name Laterality Status Provider Name and Address Organization Details Recorded Time 09/12/19 17 Egd diagnostic brush wash completed Luly Bassett [facility] 09/15/2016 11:17:11 12/09/19 16 Developmental Screening completed Selena Cabezas [facility] 12/09/2015 15:50:40 12/04/19 15 Developmental Screening completed Selena Cabezas [facility] 12/03/2014 15:39:02 Imaging Results None recorded. Procedure Notes None recorded. Medical Equipment None Reported. Allergies Allergen ID Allergen Name Allergen Category Reaction Reaction Severity Criticality Documentation Date Start Date Code Code System Note Provider Name and Address Organization Details Recorded Time 66625 adhesive tape environme nt,medica tion rash Not available Not available 03/06/2016 [facility] 6 15:27:55 8070 No known allergy (situatio n) Not available Not available Not available Not available 12/16/20132010 45893 6003 SNOMED COMME NT: RECOR DED 05/18 2:54P M BY OCTAVIA BARROSO MA, ANNOT ATION /ADDE NDUM; Not Available [facility] 4 13:25:08 8071 Product containin g penicilli n (product) medicatio n rash Not available Not available 12/16/20132013 86600 8001 SNOMED GURDEEP [place] [facility] 4 11:42:09 Medications Name Sig Start [...] completed RECORDED 08/22/19 12 4:08PM BY EDWARD MATHIAS PA-C, MEDICATI ON AUTO-LARS CTIVATIO N; Not [...] ANNOTATI ON/ADDEN DUM;THIS ORDER DISCONTI NUED PER [facility] N. Not Available Not Available Not Available [...] ARABELLA BARRAGAN PA-C, MEDICATI ON AUTO-LARS CTIVATIO N; Not [...] 10/21 completed RECORDED 10/22/19 10 2:15PM BY CRUZ BAH MA, WELL CHILD VISITS; Not Available [...] Not Avai lable Nasonex 50 mcg/actua tion [place] DAILY 2008 active RECORDED 08/27/19 09 12:09PM [...] Not Available Vitals Date Recorded Body height Body mass index (BMI) Body mass index (BMI) [Percentile] Per age and sex Body weight Heart rate Oxygen saturation Oxygen saturation in Arterial blood by Pulse oximetry Body temperature Systolic And Diastolic Provider Name and Address Organization Details Last Updated DateTime 2 160.02 cm 17.7 kg/m2 4 % 04460.5 9 g 79 /min 100 % 100 % 97.88 [degF] 99/62 mm[Hg] Carissa Nielson MA [facility] 2 11:40:31 Date Recorded Body height Provider Name an d Address Organization Details Last Updated DateTime 10/27/2021 160.02 cm Carissa Nielson MA [facility] 10/27/2021 15:25:31 Date Recorded Body height Body mass index (BMI) Body weight Heart rate Oxygen saturation Oxygen saturation in Arterial blood by Pulse oximetry Body temperature Systolic And Diastolic Provider Name and Address Organization Details Last Updated DateTime 3 152.4 cm 19.4 kg/m2 21144.3 4 g 102 /min 98 % 98 % 97.9 [degF] 101/69 mm[Hg] Carissa Nielson MA [facility] 3 15:20:59 Date Recorded Body height Body mass index (BMI) Body mass index (BMI) [Percentile] Per age and sex Body weight Oxygen saturation Oxygen saturation in Arterial blood by Pulse oximetry Heart rate Body temperature Systolic And Diastolic Provider Name and Address Organization Details Last Updated DateTime 1 160.02 cm 18.3 kg/m2 8 % 05346.4 1 g 99 % 99 % 77 /min 98.06 [degF] 100/67 mm[Hg] Rayna Mckee MA [facility] 1 11:13:37 Date Recorded Body height Provider Name an d Address Organization Details Last Updated DateTime 04/30/2020 160.02 cm Tea Brunner MA [facility] 04/30/2020 13:38:08 Social History Question Answer Notes LastModified by Organizat ion Details LastModified Time Tobacco Smoking Status Former Smoker quit Mar 2020 GURDEEP Garcia, [facility] 03/29/2021 11:15:34 Do You Have An Advance Directive? No [id number] Information not available 04/06/2020 Is Blood Transfusion Acceptable In An Emergency? Yes [id number] Information not available 04/06/2020 What Is Your Level Of Caffeine Consumption? None Information not available 11/28/2022 How Much Tobacco Do You Chew? None [id number] Information not available 04/06/2020 What Type Of Diet Are You Following? REGULAR [id number] Information not available 04/06/2020 What Is Your Home Situation? Relatives Lives With Grandparents Information not available 03/29/2021 Live Alone Or With Others? With Others TRISHA And Her bsreyna Information not available 03/10/2014 Do You Take Precautions To Prevent Distracted Driving? Yes Does Not Drive Information not available 03/29/2021 How Often Do You Need To Have Someone Help You When You Read Instructions, Pamphlets, Or Other Written Material From Your Doctor Or Pharmacy? Sometimes [email or web address] Information not available 12/09/2015 Have You Or Anyone In Your Household Had Any Of The Following Symptoms In The Last 14 Days: Sore Throat, Cough, Chills, Body Aches For Unknown Reasons, Shortness Of Breath For Unknown Reasons, Loss Of Smell, Loss Of Taste, Fever At Or Greater Than 100 Degrees Fahrenheit? No [email or web address] Information not available 02/26/2020 Are You Or Anyone In Your Household A Health Care Provider Or Emergency Responder? No [email or web address] Information not available 02/26/2020 To The Best Of Your Knowledge Have You Been In Close Proximity To Any Individual Who Tested Positive For COVID-19? No [email or web address] Information not available 02/26/2020 Have You Recently Traveled To A COVID-19 High Risk Area Or Gathering In The Last 10 Days? No [email or web address] Information not available 03/29/2021 What Was The Date Of Your Most Recent Tobacco Screening? 11/28/2022 Information not available 11/28/2022 How Many Children Do You Have? 0 [id number] Information not available 04/06/2020 What Is Your Parents' Marital Status? Grandma And Grandpa Information not available 03/29/2021 Do You Use Your Seat Belt Or Car Seat Routinely? No Information not available 03/29/2021 Seat Belts Used Routinely No [email or web address] Information not available 12/09/2015 Are You Sexually Active? No [id number] Information not available 04/06/2020 Smoke Alarm In Home Yes Information not available 03/10/2014 Do You Have Smoke And Carbon Monoxide Detectors In Your Home? Yes [id number] Information not available 04/06/2020 At What Age Did You Start Smoking Tobacco? 1 [id number] Information not available 04/06/2020 Are You Passively Exposed To Smoke? No Information not available 03/10/2014 Do You Use Sunscreen Routinely? No [id number] Information not available 04/06/2020 How Many Years Have You Smoked Tobacco? 0 [id number] Information not available 04/06/2020 Year In School 8 Dropped Out After 8th Grade Owing To Severe Anxiety [email or web address] Information not available 03/29/2021 How Many Years Have You Used E-cigarettes Or Vape? 4 [email or web address] Information not available 03/29/2021 Sex: Female Functional Status Question Answer Note LastModified by Organizat ion Details LastModified Time Do you use any illicit or recreational drugs? No Information not available 03/29/2021 Do you or have you ever used any other forms of tobacco or nicotine? Yes vape Information not available 11/28/2022 What is your level of alcohol consumption? Occasional Information not available 11/28/2022 Do you or have you ever used smokeless tobacco? Never used smokeless tobacco [id number] Information not available 04/06/2020 Are you currently employed? No [id number] Information not available 04/06/2020 Are you able to walk independently without assistance or assistive devices? YESWOREST [email or web address] Information not available 03/29/2021 Are you able to care for yourself independently? Yes [id number] Information not available 04/06/2020 Do you or have you ever used e-cigarettes or vape? Current user of electronic cigarettes [email or web address] Information not available 03/29/2021 What is your exercise level? None [id number] Information not available 04/06/2020 Mental Status None [...] Time meningococcal MCV4P 5 completed Not Available [facility] 06/21/2019 02:21:51 Influenza, split virus, quadrivalent, PF 0 completed GUR[place], [facility] 09/28/2021 14:46:58 Influenza, split virus, quadrivalent, PF 7 completed Not Available [facility] 06/21/2019 02:22:11 meningococcal MCV4P 8 completed Not Available [facility] 06/21/2019 02:21:55 Influenza, split virus, quadrivalent, PF 0 completed GURDE[place], [facility] 02/27/2020 11:51:21 Tdap 3 completed Not Available [facility] 12/16/2013 14:04:08 HPV, quadrivalent 3 completed Not Available [facility] 12/16/2013 14:04:08 HPV, quadrivalent 3 completed Not Available [facility] 12/16/2013 14:04:08 Influenza, split virus, trivalent, preservative 0 completed Not Available [facility] 12/16/2013 14:04:08 Influenza, split virus, trivalent, preservative 7 completed Not Available [facility] 12/16/2013 14:04:08 MMR 6 completed Not Available [facility] 12/16/2013 14:04:08 DTaP 5 completed Not Available [facility] 12/16/2013 14:04:08 IPV 5 completed Not Available [facility] 12/16/2013 14:04:08 Hib (HbOC) 3 completed Not Available [facility] 12/16/2013 14:04:08 DTaP 3 completed Not Available [facility] 12/16/2013 14:04:09 varicella 2 completed Not Available [facility] 12/16/2013 14:04:09 MMR 2 completed Not Available [facility] 12/16/2013 14:04:09 Hep B, adolescent or pediatric 2 completed Not Available [facility] 12/16/2013 14:04:09 pneumococcal conjugate PCV 7 2 completed Not Available [facility] 12/16/2013 14:04:09 DTaP 2 completed Not Available [facility] 12/16/2013 14:04:09 IPV 2 completed Not Available [facility] 12/16/2013 14:04:09 Hib (HbOC) 2 completed Not Available [facility] 12/16/2013 14:04:09 pneumococcal conjugate PCV 7 2 completed Not Available [facility] 12/16/2013 14:04:09 Hib (HbOC) 2 completed Not Available [facility] 12/16/2013 14:04:09 IPV 2 completed Not Available [facility] 12/16/2013 14:04:09 DTaP 2 completed Not Available [facility] 12/16/2013 14:04:09 DTaP 2 completed Not Available [facility] 12/16/2013 14:04:09 IPV 2 completed Not Available [facility] 12/16/2013 14:04:09 Hib (HbOC) 2 completed Not Available [facility] 12/16/2013 14:04:09 pneumococcal conjugate PCV 7 2 completed Not Available [facility] 12/16/2013 14:04:09 Hep B, adolescent or pediatric 1 completed Not Available [facility] 12/16/2013 14:04:09 Hep B, adolescent or pediatric 1 completed Not Available [facility] 12/16/2013 14:04:09 Influenza, split virus, trivalent, preservative 1 completed Not Available [facility] 12/16/2013 14:04:09 HPV, quadrivalent 3 completed Not Available [facility] 12/16/2013 14:04:09 Influenza, split virus, trivalent, preservative 3 completed Not Available [facility] 12/16/2013 14:04:09 varicella 0 completed Not Available [facility] 12/16/2013 14:04:09 Td (adult), 2 Lf tetanus toxoid, preservative free, adsorbed 3 completed Rex Alejandre MD [address], [address], [facility] 11/30/2022 07:53:52 Past Encounters Encounter ID Performer Location Encounter Start Date Encounter Closed Date Diagnosis/Indication Diagnosis SNOMED-CT Code Diagnosis ICD10 Code Diagnosis IMO Codes Diagnosis Note [id number] auto[facility] erce [address] [facility] [facility] [place] [address] 11/20/2006 00:00:00 [id number] auto[employer]Comm erce [address] [facility] [facility] [place] [address] 01/30/2007 00:00:00 [id number] auto[employer] erce [address] [facility] [facility] [place] [address] 06/13/2006 00:00:00 [id number] auto[employer] erce [address] [facility] [facility] [place] [address] 05/23/2007 00:00:00 [id number] auto[employer]Comm erce [address] [facility] [facility] [place] [address] 09/06/2007 00:00:00 [id number] auto[employer] erce [address] [facility] [facility] [place] [address] 08/26/2008 00:00:00 [id number] auto[employer] erce [address] [facility] [facility] [place] [address] 09/02/2008 00:00:00 [id number] [facility] erce [address] [place] [address] 01/11/2009 00:00:00 [id number] auto[employer] erce [address] [place] [address] 10/21/2009 00:00:00 [id number] auto[employer] erce [address] [place] [address] 02/24/2010 00:00:00 [id number] autoEComm erce [address] [facility] [address] [place] [address] 03/31/2010 00:00:00 [id number] auto[employer]Comm erce [address] [facility] [address] [place] [address] 05/18/2010 00:00:00 [id number] auto[employer]Comm erce [address] [facility] [place] [address] 10/27/2010 00:00:00 [id number] autoEComm erce [address] [facility] [place] [address] 03/15/2011 00:00:00 [id number] auto[employer]Comm erce [address] [facility] [address] [place] [address] 05/17/2011 00:00:00 [id number] autoEComm erce [address] [facility] [place] [address] 08/22/2011 00:00:00 [id number] auto[employer] erce [address] [place] [address] 09/21/2011 00:00:00 [id number] autoEComm erce [address] [place] [address] 11/09/2011 00:00:00 [id number] autoEComm erce [address] [place] [address] 02/21/2012 00:00:00 [id number] auto[employer]Comm erce [address] [place], [place] [address] 07/01/2012 00:00:00 [id number] autoEComm erce [address] [facility] [place] [address] 10/05/2012 00:00:00 [id number] autoEComm erce [address] [facility] [place], [place] [address] 10/25/2012 00:00:00 [id number] autoEComm erce [address] [facility] [place], [place] [address] 11/11/2012 00:00:00 [id number] autoEComm erce [address] [facility] [place], [place] [address] 11/14/2012 00:00:00 [id number] autoEComm erce [address] [facility] [place], [place] [address] 02/26/2013 00:00:00 [id number] autoEComm erce [address] [facility] [place], [place] [address] 11/27/2013 00:00:00 [id number] Edward Mathias [facility] Main Office [address] [facility] [address] [place], [place] [address] 03/05/2014 11:35:43 03/05/2014 11:56:42 Acute upper respiratory infection [id number] Patrice López MD Main Office [address] [facility] [address] [place], [place] [address] 03/10/2014 13:26:09 03/10/2014 14:18:26 Acute sinusitis [id number] Frieda Taveras [facility] Main Office [address] [facility] [address] [place], [place] [address] 05/13/2014 16:07:04 05/13/2014 16:50:19 Headache [id number] Sx have resolved, no fever, VS WNL, no evidence of infection on exam. Tylenol or iburpofen for fever/ headache and abd pain. If sx worsen please return. Abdominal pain [id number] [id number] Rex Alejandre MD Main Office [address] [facility] [address] [place], [place] [address] 12/03/2014 15:30:01 12/03/2014 16:08:38 Well child [id number] she is followed by a counselor for her anxiety and has been trying different meds to help with this. Attention deficit hyperactivity disorder 114444161 she refuses meds for this; she has an IEP in place at school Allergic rhinitis 06408245 not on meds. [id number] TONYA Vazquez Main Office [address] [address] 03/18/2015 13:18:22 03/18/2015 14:05:07 Acute pharyngitis 442987495 J02.9 Centor Score 3/4, will treat empiricall y for strep, is PCN allergic, Zithromax 500mg x 3 days as prescribed , lots of fluids, Tylenol or ibuprofen for fever/ pain. Return if worsening/ no improvemen t [id number] Rex Alejandre MD Main Office [address] [address] 07/27/2015 11:25:30 07/27/2015 11:58:41 Abdominal pain 15757901 R10.9 no evidence for appendicit its. Possible abdominal discomfort from PND from acute sinusitis. Will treat for infection and they will call next week if her symptoms persist. Acute sinusitis 98162149 J01.90 [id number] Rex Alejandre MD Main Office [address] [address] 12/09/2015 15:42:41 12/09/2015 16:38:40 Well child 841942707 Z00.129 Because of poor diet we will check her CBC and will start a daily vitamin. 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 She will consider meds for ADHD when she starts school in February. [id number] Rex Alejandre MD Main Office [address] [address] 03/06/2016 15:19:43 03/06/2016 16:15:46 Upper abdominal pain 24168766 R10.10 Unclear etiology. This has been intermitte nt over the last year or so. Possible secondary gain of being out of school. Will do a PPI trial and see her back in a couple of weeks. [id number] Patrice López MD Main Office [address] [address] [place] [address] 03/11/2016 08:14:21 03/11/2016 09:11:55 Abdominal pain 41811562 R10.9 [id number] Rex Alejandre MD Main Office [address] [address] [place] [address] 03/22/2016 14:47:59 03/22/2016 16:36:32 Abdominal pain 13168566 R10.9 Mostly nausea of unclear etiology. She was encouraged to take the prilosec on a regular basis and if this doesn't help we will consider a referral to GI. She has also agreed to see an eating d/o specialist to discuss eating habits since her MGM (guardian) feels that this may be an issue. We will look into a referral to [facility] and possibly at [place] if [facility] cannot see her. [id number] Rex Alejandre MD Main Office [address] [address] [place] [address] 09/21/2016 16:14:39 09/21/2016 16:44:40 Scoliosis of thoracic spine 742076769 M41.34 She is not having any symptoms but during an xray for a pH probe she was told that she had scoliosis. She has not been evaluated for this in the past. [id number] Rex Alejandre MD Main Office [address] [address] [place] [address] 12/13/2016 14:26:26 12/13/2016 15:22:47 Well child 046071839 Z00.129 She is UTD with immunizati ons. Eating disorder 30886835 F50.9 Followed by Adolescent Medicine. [id number] Rex Alejandre MD Main Office [address] [address] [place] [address] 03/14/2017 14:12:20 03/14/2017 15:02:35 Needs influenza immunization 854522338 Z23 Eating disorder 64511176 F50.9 She lost 3 lbs and feels that she can gain weight if she gets into the right mindset . She will return to Adolescent medicine at [facility] and she will reconsider making an appointmen t with [facility] in [facility]. Anxiety 25946272 F41.9 Some help from sertraline and seeing psychiatry . [id number] Rex Alejandre MD Main Office [address] [address] [place] [address] 06/14/2017 14:29:05 06/14/2017 15:12:14 Eating disorder 54769271 F50.9 She lost 4 lbs since her last visit making it a total of 7 lbs in 6 months. If she continues to lose she will reconsider making an appointmen t with [facility] in [facility]. [id number] Rex Alejandre MD Main Office [address] [address] [place] [place] [address] 09/10/2017 14:47:44 09/10/2017 15:25:52 Eating disorder 21484508 F50.9 She gained 9 lbs since her last appointmen t. Her parents are giving her whatever she wants to eat. She also has a boyfriend over the last few months and this may be helping with her mood. [id number] Rex Alejandre MD Main Office [address] [address] [place] [address] 12/17/2017 13:54:48 12/17/2017 14:53:26 Requires a meningitis vaccination 694970030 Z23 Well child 413713644 Z00 .129 We will update her immunizati ons today. We spoke about safer sex and control since she has been sexually active with one partner. Dysuria 08530574 R30.0 [id number] Rex Alejandre MD Main Office [address] [address] [place] [address] 12/19/2018 13:42:51 12/19/2018 14:47:24 Well child 005723277 Z00.129 We spoke about safer sex and control since she has been sexually active with one partner. Tenosynovi tis of right radial styloid [id number] 8159847 M65.4 she was given exercises to do at home and will also use ice and take NSAIDs. She will call if the pain persists. [id number] Rex Alejandre MD Main Office [address] [facility] [address] [place] [address] 02/26/2020 14:08:07 02/26/2020 15:09:30 Adult health examination 039714395 Z00.00 UTD with immunizati ons Mixed anxi ety and depressive disorder 912159021 F41.8 She is doing much better than in the past. Eating and not having as much nausea. Has a pet lizard which she has as emotional support. Needs infl uenza immunization 441947571 Z23 [id number] Patrice López MD Telehealt [address] [facility] [address] [place] [address] 04/30/2020 11:35:48 05/04/2020 11:18:24 Pain of left eye [id number] 03357 H57.12 Dacrocytosis 988287052 R 71.8 left sided swelling around nasolacrim al duct. will treat empericall y and refer to optometry [id number] Rex Alejandre MD Main Office [address] [facility] [address] [place] [address] 03/29/2021 10:54:59 03/29/2021 12:26:59 Adult health examination 706885289 Z00.00 HM declines bloodwork, declines flu vaccine. Attention deficit hyperactivity disorder 427824503 F90.2 not on any meds. Eating disorder 79172969 F50.9 hx anorexia. she feels she is past the eating disorder but keeps a weight chart and has lost 13lbs since her visit last year. she does fear getting back into the anorexia mindset . Generalize d anxiety disorder 17486792 F41.1 Hx DELLA, she had psych eval with multiple diagnoses and she disagrees. will refer for psychiatry eval at [facility]. Abscess 372780385 L02.91 right axilla. no erythema, warmth. + tender to palp. recommend warm compresses 4-5 times daily. she declines abx today. will hold off for now. if sx worsen she will contact us. [id number] Rex Alejandre MD Main Office [address] [facility] [address] [place] [address] 09/28/2021 11:29:57 09/28/2021 12:21:31 Generalized anxiety disorder 34435247 F41.1 She does not want to take sertraline as recommende d by psych since she felt that it didn't help in the past. Would like to try just gabapentin . I advised that she call the mental health number on her insurance card to help to find a psych provider in the area. She will f/u here in 4 weeks. [id number] Rex Alejandre MD Telehealt h [address] [place] [address] 10/27/2021 08:26:39 11/01/2021 15:39:06 Generalized anxiety disorder 83339483 F41.1 We discussed taking the gabapentin regularly to see if she got more help for him. I assured her that it is not addictive like a benzo and it is easier to stop than an SSRI. I encouraged her to try it regularly for a few weeks and we will check in by in 3 weeks. [id number] Rxe Alejandre MD Main Office [address] [place] [address] 11/28/2022 15:06:12 11/28/2022 16:13:57 Adult health examination 065138907 Z00.00 UTD with immunizati ons but refuses a COVID vaccine. Requires a tetanus booster 265349718 Z23 History of SARS-CoV-2 29 12308927 50620964 Z86.16 Had a positive test in the past and very mild symptoms. 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 Generalize d anxiety disorder 12658642 F41.1 We discussed increasing the gabapentin slowly to see if this works better on her anxiety. I assured her that it is not addictive like a benzo and it is easier to stop than an SSRI. Abnormal behavior 482228 06 R46.2 We will look into an evaluation concerning possible autism. Health Concerns Section Related Observation LastModified by Organization Detai ls LastModified Time None Recorded Concern Status LastModified by Organization Details LastModified Time None Recorded Advance Directives Directive N: Payers Insurance Date Sequence Insurance Name Policy Number Policy Phipps Covered Member ID Phipps Member ID Guarantor Name 12/08/2022 1 [facility] (MEDICAID HMO) [id number] Sue Lafountain [id number] Sue Lafountain 12/08/2022 2 [place] Sue Lafountain [id number] Sue Lafountain 11/28/2022 1 [facility] - MEDICAID ESSENTIAL (MEDICAID HMO) [id number] Sue Lafountain [id number] Sue Lafountain 11/28/2022 1 [employer] [facility] (MEDICAID REPLACEMENT - HMO) [id number] Sue Lafountain [id number] Sue Lafountain 11/28/2022 2 [place] Sue Lafountain [id number] Sue Lafountain Notes Date Note Type Note Provider Name and Address Organization Details Recorded Time 0 text/html ROS as noted in the HPI Video visit during COVID-19 crisis. Noted to have symptoms of [...] area of nasolacrimal duct. Patrice López MD [address] [facility] [address], [place], [address], [facility] 05/02/2020 15:24:33 1 text/html Generic HPI TemplateReported by PatientPresents for PE.concerns:- She has a cat that [...] at all. Usually eats breakfast. Delores wang, [facility] 2021 14:43:41 2 text/html She has been having skilled nursing problems with anxiety. She was seen for a med psych consult at [facility] who recommended sertraline with an escalating dose and gabapentin but she has tried sertraline in the past and doesn't want to take it again because she felt that it didn't help. Rex Alejandre MD [address] [address], [place], [address], [facility] 09/28/2021 19:21:25 2 text/html Anxiety/DepressionReport ed by PatientHPIFor severity, patient reportsinterference with household activities. For context, patient reportsmajor life stressors. For quality, patient reportssymptoms improved.She did not want to take an SSRI [...] it wasn't helping. Rex Alejandre MD [address] [facility] [address], [place], [address], [facility] 10/27/2021 18:08:34 3 text/html Generic HPI TemplateReported by PatientShe has been doing better recently. 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 She would like an evaluation and document this if it is the case. Both her parents are schizophrenic. Rex Alejandre MD [address] [facility] [address], [place], [address], [facility] 11/30/2022 08:03:55 OBGyn Episode No OBEpisode recorded.
[2025-03-31 00:23] VITALS: BP 116/65; PULSE 77; RESP 16; TEMP 36.9; O2SAT 99
== END 2025-03-31 00:24 | disposition home or self-care (01) ==
PROVIDERS: Emergency Provider Emergency Medicine; PCP Internal Medicine
DX: S00.33XA Contusion of nose, initial encounter (principal); R51.9 Headache, unspecified; X58.XXXA Exposure to other specified factors, initial encounter; Y93.9 Activity, unspecified; Y92.9 Unspecified place or not applicable; Y99.8 Other external cause status
CPT/HCPCS: 70486; 99282; 99284

== ENCOUNTER → 2025-03-30 19:40 | Outpatient (BNV) | payer OTHER, SELFPAY | PROVIDERS: PCP Internal Medicine; Visit Provider Radiology Diagnostic Radiology | DX: Z04.3 Encounter for examination and observation following other accident (principal) | CPT/HCPCS: 70486 ==